=== PATIENT | male | born 1960 | race Caucasian/White ===

== ENCOUNTER 2018-08-18 11:44 | Emergency (ER) | payer BC ==
[2018-08-18 13:47] VITALS: BP 136/72
--- NOTE | 2018-08-18 14:08 | ED ---
Lower Extremity - HPI Summary HPI Summary: 58 yr old with left hip pain for two days, worse with bearing weight and movement. Worse when first gets up in the morning. No history of any acute trauma. No fever or chills. He does not feel sick. No redness or swelling over the hip. The patient has chronic back pain and [facility] He has no other complaints. - History of Current Complaint Chief Complaint: UCLowerExtremity Stated Complaint: LT HIP CONCERN Time Seen by Provider: 08/18/18 13:49 Pain Intensity: 6 - Allergies/Home Medications Allergies/Adverse Reactions: Allergies Allergy/AdvReac Type Severity Reaction Status Date / Time Penicillins Allergy Difficulty Verified 08/18/18 13:42 Breathing Home Medications: Home Medications Fluticasone-Salmeterol 500-50* [Advair Diskus 500-50*] 1 puff INH BID 08/18/18 [ History Confirmed 08/18/18] Ibuprofen TAB* [Advil TAB*] 800 mg PO Q8H PRN 08/18/18 [History Confirmed ] Lisinopril TAB* [Prinivil TAB*] 10 mg PO DAILY 08/18/18 [History Confirmed 08/18] Metoprolol Succinate XL TAB* [Toprol XL TAB*] 100 mg PO DAILY 08/18/18 [History Confirmed 08/18/18] Rosuvastatin (NF) [Crestor (NF)] 20 mg PO DAILY 08/18/18 [History Confirmed ] PMH/Surg Hx/FS Hx/Imm Hx Endocrine/Hematology History: Denies: Hx Diabetes Cardiovascular History: Reports: Hx Hypertension Denies: Hx Pacemaker/ICD Respiratory History: Reports: Hx Chronic Obstructive Pulmonary Disease (COPD) Sensory History: Denies: Hx Hearing Aid Psychiatric History: Denies: Hx Panic Disorder Infectious Disease History: No Infectious Disease History: Denies: Traveled Outside the [place] in Last 30 Days - Family History Known Family History: Positive: None - Social History Alcohol Use: <6 beers/daily Substance Use Type: Reports: None Smoking Status (MU): Heavy Every Day Tobacco Smoker Type: Cigarettes Amount Used/How Often: 1 - 1 1/2 PPD Length of Time of Smoking/Using Tobacco: Since Age 16 Review of Systems Constitutional: Negative Positive: Other - left hip pain All Other Systems Reviewed And Are Negative: Yes Physical Exam Vital Signs On Initial Exam: Initial Vitals Temp Pulse Resp BP Pulse Ox 98.4 F 60 24 136/72 98 08/18/18 13:40 08/18/18 13:40 08/18/18 13:40 08/18/18 13:40 08/18/18 13:40 Diagnostics - Vital Signs Vital Signs Temp Pulse Resp BP Pulse Ox 08/18/18 13:40 98.4 F 60 24 136/72 98 - Laboratory Lab Statement: Any lab studies that have been ordered have been reviewed, and results considered in the medical decision making process. - Radiology left hip pelvis Xray Interpretation: No Acute Changes Radiology Interpretation Completed By: Radiologist Lower Extremity Course/Dx - Course Course Of Treatment: 58 yr old male with rather significant left hip pain, but neg xray per rad. He is going to the ER for further eval. Could have occult fracture, infection. His is driving him. - Diagnoses Provider Diagnoses: Hip pain, left Discharge - Sign-Out/Discharge Documenting (check all that apply): Patient Departure All imaging exams completed and their final reports reviewed: Yes - Discharge Plan Condition: Good Disposition: HOME-RECOMMEND TO ED Patient Education Materials: Hip Pain (ED) Referrals: Tika Fernández PA [Primary Care Provider] - Additional Instructions: You should go to the ER now for further evaluation of your sever left hip pain. - Billing Disposition and Condition Condition: GOOD Disposition: Home-Recommend to ED
--- NOTE | 2018-08-18 14:10 | RAD ---
Indication: Left hip pain. 2 views of the left hip and an AP view the pelvis demonstrates no fracture or dislocation. Joint spaces well-preserved. Pelvic ring is intact. IMPRESSION: No fracture of the left hip or pelvis is noted.
== END 2018-08-18 14:34 | disposition home health service (06) ==
LOC: UCCORT 11:44
DX: M25.552 Pain in left hip (principal); M54.9 Dorsalgia, unspecified; I10 Essential (primary) hypertension; J44.9 Chronic obstructive pulmonary disease, unspecified; F17.210 Nicotine dependence, cigarettes, uncomplicated; Z88.0 Allergy status to penicillin
CPT/HCPCS: 99202; G0463

== ENCOUNTER 2019-01-29 07:40 | Inpatient (IN) | payer BC, MEDICARE ==
--- NOTE | 2019-01-16 19:47 | HP ---
HISTORY AND PHYSICAL: DATE OF ADMISSION/SURGERY: 01/29/19 DATE OF OFFICE VISIT: 01/16/19 SURGEON: Earlene Almazan MD.* (DICTATED BY SRIKANTH ZAMBRANO) PROCEDURE: Left total hip arthroplasty. CHIEF COMPLAINT: Left hip pain. HISTORY OF PRESENT ILLNESS: Mr. Bertrand is a 58-year-old gentleman with complaints of left hip pain. He has failed conservative treatment and elected to proceed with a left total hip arthroplasty. PAST MEDICAL HISTORY: Hypertension, COPD, high cholesterol, diabetes, seizure disorder, and stroke. PAST SURGICAL HISTORY: Colonoscopy. CURRENT MEDICATIONS: 1. ProAir HFA 2 puffs every 4 hours as needed. 2. Metoprolol 100 mg a day. 3. Lisinopril 10 mg a day. 4. Rosuvastatin calcium 20 mg a day. 5. Aspirin 81 mg daily. 6. Advair Diskus. 7. Lyrica 150 mg once a day. 8. Metformin 500 mg once a day. ALLERGIES: To PENICILLIN and MORPHINE. MORPHINE causes hives. FAMILY HISTORY: Diabetes, coronary artery disease, stroke, RA, and DVT. SOCIAL HISTORY: He is a 58-year-old gentleman who lives with his . He smokes a pack a day and drinks approximately 6 beers a day. He denies use of illicit drugs. REVIEW OF SYSTEMS: A complete 14-point review of systems was reviewed with the patient. Positive for history of stroke, seizures, COPD, and shortness of breath. He denies history of DVT, hepatitis, HIV, or anesthesia problems. PHYSICAL EXAMINATION GENERAL: He is well developed, well nourished, in no acute distress. VITAL SIGNS: He stands 67 inches tall, weighs 222 pounds. His blood pressure is 136/80, his heart rate is 64. HEENT: Normocephalic, atraumatic. NECK: Supple. No palpable lymph nodes. PULMONARY: The lungs are clear to auscultation bilaterally. CARDIO: Regular rate and rhythm. Strong S1, S2. ABDOMEN: Soft, nontender, nondistended. NEUROLOGICAL: He is alert and oriented x3. MUSCULOSKELETAL: Left lower extremity: The skin is intact. There are no open wounds or abrasions. He has 0 degrees of internal rotation, 30 degrees of external rotation, 95 degrees of flexion which reproduces groin pain. He has a 2+ dorsalis pedis pulse. He is able to dorsiflex and plantarflex and has intact sensation. ASSESSMENT AND PLAN: Mr. Bertrand is a 58-year-old gentleman with complaints of left hip pain. He has failed conservative treatment and elected to proceed with a left total hip arthroplasty. The surgery is scheduled for 01/29/[address] Almazan discussed the risks and benefits of the surgery at today' s visit and all of his questions were answered. He will follow up with Dr. Almazan 2 weeks after the surgery. SRIKANTH ZAMBRANO [id number]/[facility] #: [id number] SURY
[~2019-01-29 07:40] MED LIST: Acetaminophen TAB* 325 MG PO ONE; Buffered Lidocaine 1% SYRIN* 1 ML/SYRINGE INTRADERM ONE; Dexamethasone TAB* 4 MG PO ONE; DiMENhydriNATE IV* 50 MG/ML VIAL IV PUSH PRN; Famotidine IV* 10 MG/ML 2 ML (20 mg) IV ONE; Gabapentin CAP(*) 300 MG PO ONE; HYDROmorphone INJ1* 1 MG/ML SYRINGE IV PRN; Lactated Ringers 1000 ML Bag* 1,000 ML IV SCH; Naloxone* 0.4 MG/ML 1 ML VIAL IV PRN; Ondansetron TAB* 4 MG PO ONE; PROCHLORPERAZINE INJ 5 MG/ML 2 ML VIAL IV PRN; Scopolamine 1.5 mg* PATCH TRANSDERM PRN; celeCOXIB CAP* 200 MG PO ONE; fentaNYL* 50 MCG/ML 2 ML VIAL (100 MCG VIAL) IV PRN; oxyCODONE/Acetamin 5/325 MG* TAB PO PRN
--- OUTSIDE RECORDS SUMMARY | 2019-01-29 07:44 | XMS REPORT | Continuity of Care Document ---
:1960 External Reference #:[id number] Author Name Veronica Perry Care Team Providers Name Role Phone Oniel Fernández RPA Primary Care Physician Unavailable Payers Date Identification Numbers Payment Provider Subscriber Policy Number: [id number] [facility] Mariam Malone PayID: [id number] [address] [place] [address] Advance Directives Description No Information Available Problems Date Description Provider Status Onset: 11/14/2018 Localized, primary osteoarthritis of the Earleneduc Almazan M.D. Active pelvic region and thigh Family History Date Family Member(s) Observation Comments General Heart Disease General Coronary Artery Disease (CAD) General Hypertension General Diabetes General Asthma General Seasonal Allergies General Osteoporosis General Arthritis General Pancreatic Cancer Father Diabetes Father Heart Disease Father Hypertension Father due to Accidental () Mother Heart Disease Mother Pancreatic Cancer Mother Hypertension Mother due to Pancreatic Cancer () Social History Type Date Description Comments Sex Unknown Marital Status Lives With Spouse Occupation Not Currently Working ETOH Use Consumes 1 six pack of beer per day Tobacco Use Start: Unknown Patient is a current smoker, smokes every day Recreational Drug Use Denies Drug Use Tobacco Use Start: Unknown Heavy tobacco smoker (more than 10 cigarettes/day) Smoking Status Reviewed: 01/16/19 Heavy tobacco smoker (more than 10 cigarettes/day) Exercise Type/Frequency Does not exercise Allergies, Adverse Reactions, Alerts Date Description Reaction Status Severity Comments 2015 Penicillin Active 10/08/2018 Morphine Active Medications Medication Date Status Form Strength Qnty SIG Indications Ordering Provider Proair HFA Active Aerosol 108(90Bas 2 puffs Unknown /0000 e) by mouth mcg/Act every 4 hours as needed Metoprolol Succinate Active Tablets 100mg 1 by Unknown ER /0000 ER 24HR mouth every day Lisinopril Active Tablets 10mg 1 by Unknown /0000 mouth every day Rosuvastatin Calcium Active Tablets 20mg 1 by Unknown /0000 mouth every day Aspirin 81 Low Dose Active Chewtabs 81mg 1 by Unknown /0000 mouth every day Advair Diskus Active Aerosol 500-50mcg inhale Unknown /0000 /Dose one dose by mouth twice daily Lyrica Active Capsules 150mg take one Unknown /0000 tablet by mouth twice daily for pain. Metformin HCL ER Active Tablets 500mg Take One Unknown /0000 ER 24HR Tablet By Mouth Every Day Methylprednisolone 03/07 Hx Tablets 4mg 1pack take as 844.8 Cuauhtemoc Polk) /2014 directed Gómez - M.DSabino 09/28 Topiramate 12/24 Hx Caps 25mg 120ca 3-4 tabs Latisha Sabino Sprinkle ps by mouth Kimberley, - every day M.DSabino 10/02 directed Hydrocodone Hx Tablets 5-300mg 1 tab by Unknown Bitartrate/Acetamino /0000 mouth phen - every 4-6 12/ hours needed for pain Medications Administered in Office Medication Date Status Form Strength Qnty SIG Indications Ordering Provider Depomedrol Administered Injection Earlene 40MG 019 Jovanna Alamzan Immunizations Description No Information Available Vital Signs Date Vital Result Comment 01/16/2019 1:39pm Height 67 inches 5'7" Weight 222.00 lb Heart Rate 64 /min BP Systolic Sitting 136 mmHg BP Diastolic Sitting 80 mmHg Respiratory Rate 16 /min Pain Level 4 BMI (Body Mass Index) 34.8 kg/m2 12/26/2018 9:05am Height 67 inches 5'7" Weight 212.00 lb BP Systolic 140 mmHg BP Diastolic 72 mmHg Respiratory Rate 16 /min Pain Level 6 BMI (Body Mass Index) 33.2 kg/m2 11/21/2018 11:01am Height 67 inches 5'7" Weight 220.00 lb Heart Rate 80 /min BP Systolic 160 mmHg BP Diastolic 86 mmHg BMI (Body Mass Index) 34.5 kg/m2 11/14/2018 3:12pm Height 67 inches 5'7" Weight 230.50 lb Heart Rate 84 /min BP Systolic 138 mmHg BP Diastolic 88 mmHg Respiratory Rate 19 /min Pain Level 6 BMI (Body Mass Index) 36.1 kg/m2 10/08/2018 2:58pm Height 67 inches 5'7" Weight 233.25 lb Heart Rate 67 /min BP Systolic Sitting 147 mmHg L BP Diastolic Sitting 78 mmHg L Respiratory Rate 24 /min Pain Level 9 O2 % BldC Oximetry 96 % BMI (Body Mass Index) 36.5 kg/m2 2015 12:01pm Height 67 inches 5'7" Weight 208.00 lb Pain Level 6 BMI (Body Mass Index) 32.6 kg/m2 02/08/2015 11:35am Weight 208.00 lb Body Temperature 97.9 F Pain Level 3 Results Test Date Facility Test Result H/L Range Note CBC Auto Diff 01/16/2019 [facility] White Blood 8.2 10^3/uL N 3.5-10.[address] [place] [address] [phone] Red Blood Count 4.74 10^6/uL N 4.18-5.48 Hemoglobin 14.2 g/dL N 14.0-18.0 Hematocrit 42 % N 36-46 Mean Corpuscular Volume 89 fL N 80-94 Mean Corpuscular Hemoglobin 30 pg N 27-31 Mean Corpuscular HGB Conc 34 g/dL N 31-36 Red Cell Distribution Width 14 % N 10.5-15 Platelet Count 214 10^3/uL N 150-450 Mean Platelet Volume 9.2 fL N 7.4-10.4 Abs Neutrophils 4.7 10^3/uL N 1.5-7.7 Abs Lymphocytes 2.4 10^3/uL N 1.0-4.8 Abs Monocytes 0.7 10^3/uL N 0-0.8 Abs Eosinophils 0.4 10^3/uL N 0-0.6 Abs Basophils 0 10^3/uL N 0-0.2 Abs Nucleated RBC 0 10^3/uL Granulocyte % 57.0 % Lymphocyte % 29.5 % Monocyte % 8.8 % Eosinophil % 4.4 % Basophil % 0.3 % Nucleated Red Blood Cells % 0.1 Urinalysis Profile 01/16/2019 [facility] Urine Color Yellow [address] [place] [address] [phone] Urine Appearance Clear Urine Specific [place] 1.012 N 1.010-1.030 Urine pH 6.0 N 5-9 Urine Urobilinogen Negative Negative Urine Ketones Negative Negative Urine Protein Negative Negative Urine Leukocytes Negative Negative Urine Blood Negative Negative Urine Nitrite Negative Negative Urine Bilirubin Negative Negative Urine Glucose Negative Negative Inr/Protime 01/16/2019 [facility] Inr 0.98 N 0.77-1.[address] [place] [address] [phone] Laboratory test 01/16/2019 [facility] Partial 33.3 seconds N 26.0-36.[address] [place] [address] PTT [phone] Comp Metabolic 01/16/2019 [facility] Sodium 138 mmol/L N 135- [address] [place] [address] [phone] Potassium 4.4 mmol/L N 3.5-5.0 Chloride 101 mmol/L N 101-111 Co2 Carbon Dioxide 30 mmol/L N 22-32 Anion Gap 7 mmol/L N 2-11 Glucose 169 mg/dL High 70-100 Blood Urea Nitrogen 13 mg/dL N 6-24 Creatinine 0.91 mg/dL N 0.67-1.17 BUN/Creatinine Ratio 14.3 N 8-20 Calcium 9.3 mg/dL N 8.6-10.3 Total Protein 7.2 g/dL N 6.4-8.9 Albumin 4.5 g/dL N 3.2-5.2 Globulin 2.7 g/dL N 2-4 Albumin/Globulin Ratio 1.7 N 1-3 Total Bilirubin 0.30 mg/dL N 0.2-1.0 Alkaline Phosphatase 75 U/L N 34-104 Alt 52 U/L N 7-52 Ast 50 U/L High 13-39 Egfr Non- 85.6 >60 Egfr 103.5 >60 1 Type & Screen 01/16/2019 [facility] Patient Blood Type A Positive [address] [place] [address] [phone] Antibody Screen NEGATIVE Urine Culture And 01/16/2019 [facility] Urine Culture SEE RESULT [address] [place] [address] [phone] Xray 11/14/2018 Per Diem Registered Nurse In House Inj/Aspir <pending> Major JT Or Bursa W/ US Body Fluid Cell 03/26/2013 [facility] Body Fluid Synovial Fluid Count [address] [place] [address] [phone] Body Fluid Appearance Cloudy Body Fluid Color Rachana Body Fluid Volume 4 mL Body Fluid WBC 217 Body Fluid RBC 5860 Body Fluid Polys 4 Body Fluid Lymph 62 Body Fluid [place] 24 Body Fluid Other Cells 10 Body Fluid Total Cells Counted 100 Fluid Reviewed By MD (SEE NOTE) 3 Laboratory test 03/26/2013 [facility] Fluid Crystals None Seen [address] [place], [place] [id number] [phone] Body Fluid C&S 03/26/2013 [facility] Body Fluid Cult (SEE [address] Gram Stain NOTE) [place] [address] [phone] Laboratory test 03/24/2013 [facility] Erythrocyte Sed 24 mm/Hr High 0-[address] [place] [address] [phone] CBC Auto Diff 03/24/2013 [facility] White Blood Count 7.6 4.8 -[address] 10^3/uL 0.8 [place] [address] [phone] Red Blood Count 4.94 10^6/uL 4.0-5.4 Hemoglobin 15.2 g/dL 14.0-18.0 Hematocrit 45 % 42-52 Mean Corpuscular Volume 92 fL 80-94 Mean Corpuscular Hemoglobin 31 pg 27-31 Mean Corpuscular HGB Conc 34 g/dL 31-36 Red Cell Distribution Width 13 % 10.5-15 Platelet Count 228 10^3/uL 150-450 Mean Platelet Volume 9 um3 7.4-10.4 Abs Neutrophils 4.2 10^3/uL 1.5-7.7 Abs Lymphocytes 2.2 10^3/uL 1.0-4.8 Abs Monocytes 0.8 10^3/uL 0-0.8 Abs Eosinophils 0.2 10^3/uL 0-0.6 Abs Basophils 0.1 10^3/uL 0-0.2 Abs Nucleated RBC 0 10^3/uL Granulocyte % 55.8 % 38-83 Lymphocyte % 29.3 % 25-47 Monocyte % 11.1 % High 1-9 Eosinophil % 2.1 % 0-6 Basophil % 1.7 % 0-2 Nucleated Red Blood Cells % 0.1 Laboratory test 03/24/2013 [facility] C Reactive 0.8 mg/dL High Less than finding [address] Protein 0.5 [place] [address] [phone] 1 Because ethnic data is not always readily available, this report includes an eGFR for both -Americans and non- Americans. The National Kidney Disease Education Program (NKDEP) does not endorse the use of the MDRD equation for patients that are not between the ages of 18 and 70, are , have extremes of body size, muscle mass, or nutritional status, or are non- or non-. According to the National Kidney Foundation, irrespective of diagnosis, the stage of the disease is based on the level of kidney function: Stage Description GFR(mL/min/1.73 m(2)) 1 Kidney damage with normal or decreased GFR 90 2 Kidney damage with mild decrease in GFR 60-89 3 Moderate decrease in GFR 30-59 4 Severe decrease in GFR 15-29 5 Kidney failure <15 (or dialysis) 2 SEE RESULT BELOW Name: JOAQUIN RIBERA : [address]: Earlene Almazan MD Acct: [id number] Unit: [id number] AGE: 58 Location: [facility] Re01/16/19 SEX: M Status: REG REF SPEC: [id number] GHADA: 01/16/[address] [facility] [address]: Earlene Almazan MD REQ: [id number] RECD: 01/16/19 STATUS: TANISHA WEN DR: Tika Fernández PA _ SOURCE: URINE SPDESC: ORDERED: Urine Culture QUERIES: Urine Source: Clean Catch Procedure Result Reported Site Urine Culture Final 01/17/19- 1602 ML No Growth (<1,000 CFU/mL) * ML - Main Lab . END OF REPORT DEPARTMENT OF PATHOLOGY, [address] [place] [address] Luis A Carter M.D. Director [facility] # [id number] 3 REVIEWED BY LUIS A CARTER MD Slide and differential reviewed. No bacteria, blasts or other malignant cells seen. 4 Synovial (Joint) Fluid 5 RUN DATE: 03/30/13 [facility] LAB LIVE PAGE 1 RUN TIME: [address] [place] [address] Specimen Inquiry Name: JOAQUIN RIBERA : [address]: Cuauhtemoc Magaña MD Acct: [id number] Unit: [id number] AGE: 53 Location: [facility] Re03/26/13 SEX: M Status: REG REF SPEC: [id number] GHADA: 03/26/[address]: Cuauhtemoc Magaña MD REQ: [id number] RECD: 03/26/13 STATUS: COMP _ SOURCE: JOINT FLUI SPDESC:KNEE RIGHT ORDERED: NIKOLAI Hunter/SHELBY Procedure Result Verified Site Body Fluid Gram Stain Final 03/26/13- 1554 ML 4+ Polys No Organisms Seen Preparation By Direct Smear Body Fluid Culture Final 03/30/13- 1006 ML No Growth Day 4 END OF REPORT * ML=Testing performed at Main Lab DEPARTMENT OF PATHOLOGY, [address] [place] [address] Luis A Carter M.D. Director [facility] Permit #[id number] Procedures Date Code Description Status 11/14/2018 Inj/Aspir Major JT Or Bursa W/ US Completed 03/26/2013 Inject/Drain Joint/Bursa Major W/O US Completed 03/02/2013 Inject/Drain Joint/Bursa Major W/O US Completed Encounters Type Date Location Provider Dx Diagnosis Office Visit 12/26/2018 Orthopedic Earlene Almazan, M16.12 Unilateral primary 9:00a Services Of Juan Nugent osteoarthritis, left hip M25.552 Pain in left hip Office Visit 11/21/2018 Orthopedic Earlene M16.12 Unilateral primary 10:30a Services Of Jovanna Almazan osteoarthritis, left C.M.A. hip Office Visit 11/14/2018 Orthopedic Earlene M25.552 Pain in left hip 3:00p Services Of Jovanna Almazan C.M.ASabino M16.12 Unilateral primary osteoarthritis, left hip Office 10/08/2018 Neurosurgery Vassilios S32.110A Nondisplaced Zone Visit 3:00p Services Of Real Denny MD I fracture of AT Penelope sacrum, init for clos fx M54.16 Radiculopathy, lumbar region Office Visit 2015 11:45a Fannie Magaña, Marcial4.8 Sprains & Strains Services Of M.D. Knee & Leg Other C.M.A. Spec Sites Office Visit 02/08/2015 10:45a Fannie Magaña, 719.46 Pain Joint Lower Services Of M.D. Leg C.M.A. Office Visit 12/23/2013 11:45a Nicolas/Parminder Good MSabino 345.10 Epilepsy Neurologic Serv Stackman, Convulsive W/O Of Per Diem Registered Nurse M.D. Intractable 437.9 Cerebrovascular Disease Or Lesion Unspec Office Visit 04/24/2013 10:30a Orthopedic Cuauhtemoc Magaña, 844.8 Sprains & Services Of C.M.A. M.D. Strains Knee & Leg Other Spec Sites Office Visit 03/26/2013 2:00p Fannie Magaña 719.46 Pain Joint Services Of [facility]. M.D. Lower Leg 719.06 Effusion Joint Lower Leg Office Visit 03/24/2013 2:45p Orthopedic Services Joaquin Varela 719.46 Pain Joint Of C.[facility]. M.D. Lower Leg Office Visit 03/02/2013 2:15p Orthopedic Services Joaquin Varela 719.46 Pain Joint Of C.[facility]. M.D. Lower Leg 719.06 Effusion Joint Lower Leg Plan of Treatment Future Appointment(s):02/09/2019 2:30 pm - Earlene Almazan M.D. at [facility]01/29/2019 10:30 am - Raul Larios PA-C at [facility]01/29/2019 10:30 am - ANDREW Ordonez at [facility]01/29/2019 10:30 am - Earlene Almazan M.D. at [facility]01/16/2019 - Earlene Almazan M.D.M16.12 Unilateral primary osteoarthritis, left hipFollow up:Follow up: 2 weeks after [id number] Pain in left hip
--- OUTSIDE RECORDS SUMMARY | 2019-01-29 07:44 | XMS REPORT | Continuity of Care Document ---
:1960 External Reference #:[id number] Author Name Edith Faust Care Team Providers Name Role Phone Oniel Fernández RPA Primary Care Physician Unavailable Payers Date Identification Numbers Payment Provider Subscriber Policy Number: [id number] [facility] Mariam Malone PayID: [id number] [address] [place] [address] Advance Directives Description No Information Available Problems [...] Depomedrol Administered Injection Earlene 40MG 019 Jovanna Almazan Immunizations Description No Information Available Vital Signs [...] H/L Range Note CBC Auto Diff 01/16/2019 [facility] White Blood 8.2 10^3/uL N 3.5-10.[address] [place] [address] [phone] Red Blood Count 4.74 10^6/uL N 4.18-5.48 [...] Blood Cells % 0.1 Urinalysis Profile 01/16/2019 [facility] Urine Color Yellow [address] [place] [address] [phone] Urine Appearance Clear Urine Specific [place] 1.012 N 1.010-1.030 Urine pH 6.0 N 5-9 Urine Urobilinogen Negative Negative Urine Ketones Negative Negative Urine Protein Negative Negative Urine Leukocytes Negative Negative Urine Blood Negative Negative Urine Nitrite Negative Negative Urine Bilirubin Negative Negative Urine Glucose Negative Negative Inr/Protime 01/16/2019 [facility] Inr 0.98 N 0.77-1.[address] [place] [address] [phone] Laboratory test 01/16/2019 [facility] Partial 33.3 seconds N 26.0-36.[address] [place] [address] PTT [phone] Comp Metabolic 01/16/2019 [facility] Sodium 138 mmol/L N 135- [address] [place] [address] [phone] Potassium 4.4 mmol/L N 3.5-5.0 Chloride 101 [...] 103.5 >60 1 Type & Screen 01/16/2019 [facility] Patient Blood Type A Positive [address] [place] [address] [phone] Antibody Screen NEGATIVE Urine Culture And 01/16/2019 [facility] Urine Culture SEE RESULT [address] [place] [address] [phone] Xray 11/14/[address] In House Inj/Aspir <pending> Major JT Or Bursa W/ US Body Fluid Cell 03/26/2013 [facility] Body Fluid Synovial Fluid Count [address] [place] [address] [phone] Body Fluid Appearance Cloudy Body Fluid Color Rachana Body Fluid Volume 4 mL Body Fluid WBC 217 Body Fluid RBC 5860 Body Fluid Polys 4 Body Fluid Lymph 62 Body Fluid Kimble 24 Body Fluid Other Cells 10 Body Fluid Total Cells Counted 100 Fluid Reviewed By MD (SEE NOTE) 3 Laboratory test 03/26/2013 [facility] Fluid Crystals None Seen [address] [place], [place] [address] [phone] Body Fluid C&S 03/26/2013 [facility] Body Fluid Cult (SEE [address] Gram Stain NOTE) [place] [address] [phone] Laboratory test 03/24/2013 [facility] Erythrocyte Sed 24 mm/Hr High 0-[address] [place] [address] [phone] CBC Auto Diff 03/24/2013 [facility] White Blood Count 7.6 4.8 -[address] 10^3/uL 0.8 [place] [address] [phone] Red Blood Count 4.94 10^6/uL 4.0-5.4 Hemoglobin [...] Blood Cells % 0.1 Laboratory test 03/24/2013 [facility] C Reactive 0.8 mg/dL High Less than finding [address] Protein 0.5 [place] [address] [phone] 1 Because ethnic data is not always [...] [address]: Earlene Almazan MD Acct: [id number] Unit: [id number] AGE: 58 Location: [facility] Re01/16/19 SEX: M Status: REG REF SPEC: [id number] GHADA: 01/16/[address] [facility] [address]: Earlene Almazan MD REQ: [id number] RECD: 01/16/19 STATUS: TANISHA WEN DR: Tika Fernández PA _ SOURCE: URINE SPDESC: ORDERED: Urine Culture QUERIES: Urine Source: Clean Catch Procedure Result Reported Site Urine Culture Final 01/17/19- 1602 ML No Growth (<1,000 CFU/mL) * ML - Main Lab . END OF REPORT DEPARTMENT OF PATHOLOGY, [address] [place] [address] Luis A Carter M.D. Director [facility] # [id number] 3 REVIEWED BY LUIS A CARTER MD Slide and differential reviewed. No bacteria, blasts or other malignant cells seen. 4 Synovial (Joint) Fluid 5 RUN DATE: 03/30/13 [facility] LAB LIVE PAGE 1 RUN TIME: [address] [place] [address] Specimen Inquiry Name: JOAQUIN RIBERA : [address]: Cuauhtemoc Magaña MD Acct: [id number] Unit: [id number] AGE: 53 Location: [facility] Re03/26/13 SEX: M Status: REG REF SPEC: [id number] GHADA: 03/26/[address]: Cuauhtemoc Magaña MD REQ: [id number] RECD: 03/26/13 STATUS: COMP _ SOURCE: JOINT FLUI SPDESC:KNEE RIGHT ORDERED: NIKOLAI Hunter/SHELBY Procedure Result Verified Site Body Fluid Gram Stain Final 03/26/13- 1554 ML 4+ Polys No Organisms Seen Preparation By Direct Smear Body Fluid Culture Final 03/30/13- 1006 ML No Growth Day 4 END OF REPORT * ML=Testing performed at Main Lab DEPARTMENT OF PATHOLOGY, [address] [place] [address] Luis A Carter M.D. Director [facility] Permit #[id number] Procedures Date Code Description Status 11/14/2018 Inj/Aspir [...] Real Denny MD I fracture of AT [place] sacrum, init for clos fx M54.16 Radiculopathy, lumbar region Office Visit 2015 11:45a Fannie Magaña, Marcial4.8 Sprains & Strains Services Of M.D. Knee & Leg Other C.M.A. Spec Sites Office Visit 02/08/2015 10:45a Fannie Magaña, 719.46 Pain Joint Lower Services Of M.D. Leg C.M.A. Office Visit 12/23/2013 11:45a Nicolas/Parminder Good MSabino 345.10 Epilepsy Neurologic Serv Stackman, Convulsive W/O Of [address] M.D. Intractable 437.9 Cerebrovascular Disease Or Lesion [...] left hipFollow up:Follow up: 2 weeks after [id number] Pain in left hip
--- OUTSIDE RECORDS SUMMARY | 2019-01-29 07:44 | XMS REPORT | Continuity of Care Document ---
:1960 External Reference #:[id number] Author Name SRIKANTH Wolff Address [address] , [place] [address] Care Team Providers Name Role Phone Oniel Fernández RPA Primary Care Physician Unavailable Payers Date Identification Numbers Payment Provider Subscriber Policy Number: [id number] [facility] Mariam Malone PayID: [id number] [address] [place] [address] Advance Directives Description No Information Available Problems Date Description Provider Status Onset: 11/14/2018 Localized, primary osteoarthritis of the Earlene Almazan M.D. Active pelvic region and thigh [...] Form Strength Qnty SIG Indications Ordering Provider Pro HFA Active Aerosol 108(90Bas 2 puffs Unknown [...] Tablets 4mg 1pack take as 844.8 Cuauhtemoc (Nirav) directed Gómez, - M.D. 09/28 Topiramate 12/24 Hx Caps 25mg 120ca 3-4 tabs Latisha Ho Sprinkle ps by mouth Kimberley, - every day M.D. 10/02 directed Hydrocodone Hx Tablets 5-300mg 1 tab by Unknown Bitartrate/Acetamino /0000 mouth phen - every 4-6 09/30 hours needed for pain Medications Administered in [...] H/L Range Note CBC Auto Diff 01/16/2019 [facility] White Blood 8.2 10^3/uL N 3.5-10.[address] [place] [address] [phone] Red Blood Count 4.74 10^6/uL N 4.18-5.48 [...] Blood Cells % 0.1 Urinalysis Profile 01/16/2019 [facility] Urine Color Yellow [address] [place] [address] [phone] Urine Appearance Clear Urine Specific [place] 1.012 N 1.010-1.030 Urine pH 6.0 N 5-9 Urine Urobilinogen Negative Negative Urine Ketones Negative Negative Urine Protein Negative Negative Urine Leukocytes Negative Negative Urine Blood Negative Negative Urine Nitrite Negative Negative Urine Bilirubin Negative Negative Urine Glucose Negative Negative Inr/Protime 01/16/2019 [facility] Inr 0.98 N 0.77-1.[address] [place] [address] [phone] Laboratory test 01/16/2019 [facility] Partial 33.3 seconds N 26.0-36.[address] [place] [address] PTT [phone] Comp Metabolic 01/16/2019 [facility] Sodium 138 mmol/L N 135- [address] [place] [address] [phone] Potassium 4.4 mmol/L N 3.5-5.0 Chloride 101 [...] 103.5 >60 1 Type & Screen 01/16/2019 [facility] Patient Blood Type A Positive [address] [place] [address] [phone] Antibody Screen NEGATIVE Urine Culture And 01/16/2019 [facility] Urine Culture SEE RESULT [address] [place] [address] [phone] Xray 11/14/2018 [facility] In House Inj/Aspir <pending> Major JT Or Bursa W/ US Body Fluid Cell 03/26/2013 [facility] Body Fluid Synovial Fluid Count [address] Source [place], [place] [address] [phone] Body Fluid Appearance Cloudy Body Fluid Color Rachana Body Fluid Volume 4 mL Body Fluid WBC 217 Body Fluid RBC 5860 Body Fluid Polys 4 Body Fluid Lymph 62 Body Fluid [place] 24 Body Fluid Other Cells 10 Body Fluid Total Cells Counted 100 Fluid Reviewed By MD (SEE NOTE) 3 Laboratory test 03/26/2013 [facility] Fluid Crystals None Seen [address] [place] [address] [phone] Body Fluid C&S 03/26/2013 [facility] Body Fluid Cult (SEE [address] Gram Stain NOTE) [place], [place] [address] [phone] Laboratory test 03/24/2013 [facility] Erythrocyte Sed 24 mm/Hr High 0-[address] [place] [address] [phone] CBC Auto Diff 03/24/2013 [facility] White Blood Count 7.6 4.8 -[address] 10^3/uL 0.8 [place] [address] [phone] Red Blood Count 4.94 10^6/uL 4.0-5.4 Hemoglobin [...] Blood Cells % 0.1 Laboratory test 03/24/2013 [facility] C Reactive 0.8 mg/dL High Less than finding [address] Protein 0.5 [place] [address] [phone] 1 Because ethnic data is not always [...] [address]: Earlene Almazan MD Acct: [id number] Unit: [id number] AGE: 58 Location: [facility] Re01/16/19 SEX: M Status: REG REF SPEC: [id number] GHADA: 01/16/19 [facility] DR: Earlene Almazan MD REQ: [id number] RECD: 01/16/19 STATUS: TANISHA WEN DR: Tika Fernández PA _ SOURCE: URINE SPDESC: ORDERED: Urine Culture QUERIES: Urine Source: Clean Catch Procedure Result Reported Site Urine Culture Final 01/17/19- 1602 ML No Growth (<1,000 CFU/mL) * ML - Main Lab . END OF REPORT DEPARTMENT OF PATHOLOGY, [address] [place] [address] Luis A Carter M.D. Director [facility] # [id number] 3 REVIEWED BY LUIS A CARTER MD Slide and differential reviewed. No bacteria, blasts or other malignant cells seen. 4 Synovial (Joint) Fluid 5 RUN DATE: 03/30/13 [facility] LAB LIVE PAGE 1 RUN TIME: [address] [place] [address] Specimen Inquiry Name: JOAQUIN RIBERA : [address]: Cuauhtemoc Magaña MD Acct: [id number] Unit: [id number] AGE: 53 Location: [facility] Re03/26/13 SEX: M Status: REG REF SPEC: [id number] GHADA: 03/26/13-[address]: Cuauhtemoc Magaña MD REQ: [id number] RECD: 03/26/13 STATUS: COMP _ SOURCE: JOINT FLUI SPDESC:KNEE RIGHT ORDERED: NIKOLAI Hunter/SHELBY Procedure Result Verified Site Body Fluid Gram Stain Final 03/26/13- 1554 ML 4+ Polys No Organisms Seen Preparation By Direct Smear Body Fluid Culture Final 03/30/13- 1006 ML No Growth Day 4 END OF REPORT * ML=Testing performed at Main Lab DEPARTMENT OF PATHOLOGY, [address] [place] [address] Luis A Carter M.D. Director [facility] Permit #[id number] Procedures Date Code Description Status 11/14/2018 Inj/Aspir Major JT Or Bursa W/ US Completed 03/26/201396524 Inject/Drain Joint/Bursa Major W/O US Completed 03/02/2013 [...] Real Denny MD I fracture of AT [place] sacrum, init for clos fx M54.16 Radiculopathy, lumbar region Office Visit 2015 11:45a Orthopedic Cuauhtemoc Magaña, 844.8 Sprains & Strains Services Of M.D. Knee & Leg Other C.M.A. Spec Sites Office Visit 02/08/2015 10:45a Orthopedic Cuauhtemoc Magaña 719.46 Pain Joint Lower Services Of M.D. Leg C.M.A. Office Visit 12/23/2013 11:45a [place]/Parminder Ho 345.10 Epilepsy Neurologic Serv Stackman, Convulsive W/O Of Ammonia Box Tender M.D. Intractable 437.9 Cerebrovascular Disease Or Lesion [...] left hipFollow up:Follow up: 2 weeks after [id number] Pain in left hip
--- OUTSIDE RECORDS SUMMARY | 2019-01-29 07:44 | XMS REPORT | Continuity of Care Document ---
:1960 External Reference #:[id number] Author Name Vero Shanika Care Team Providers Name Role Phone Oniel Fernández RPA Primary Care Physician Unavailable Payers Date Identification Numbers Payment Provider Subscriber Policy Number: [id number] [facility] Mariam Malone PayID: [id number] [address] [place] [address] Advance Directives Description No Information Available Problems [...] Unknown /0000 mouth every day Rosuvastatin Calcium 00 Active Tablets 20mg 1 by Unknown /0000 [...] take as 844.8 Cuauhtemoc Polk) /2014 directed Wilder Magaña M.D. 09/28 Topiramate 12/24 Hx Caps 25mg [...] Date Facility Test Result H/L Range Note Xray 11/14/2018 [facility] In House Inj/Aspir <pending> Major JT Or Bursa W/ US Body Fluid C&S 03/26/2013 [facility] Body Fluid (SEE NOTE) [address] [place] [address] Stain [phone] Laboratory test 03/26/2013 [facility] Fluid Crystals None Seen [address] [place] [address] [phone] Body Fluid Cell 03/26/2013 [facility] Body Fluid Synovial Fluid Count [address] Source [place], [place] [address] [phone] Body Fluid Appearance Cloudy Body Fluid Color Rachana Body Fluid Volume 4 mL Body Fluid WBC 217 Body Fluid RBC 5860 Body Fluid Polys 4 Body Fluid Lymph 62 Body Fluid [place] 24 Body Fluid Other Cells 10 Body Fluid Total Cells Counted 100 Fluid Reviewed By MD (SEE NOTE) 3 Laboratory test 03/24/2013 [facility] C Reactive 0.8 mg/dL High Less than finding [address] Protein 0.5 [place], [place] [address] [phone] CBC Auto Diff 03/24/2013 [facility] White Blood 7.6 4.8-10.[address] Count 10^3/uL [place], [place] [address] [phone] Red Blood Count 4.94 10^6/uL 4.0-5.4 Hemoglobin [...] Blood Cells % 0.1 Laboratory test 03/24/2013 [facility] Erythrocyte Sed 24 mm/Hr High 0-[address] [place] [address] [phone] 1 RUN DATE: 03/30/13 [facility] LAB LIVE PAGE 1 RUN TIME: [address] [facility], [place] [address] Specimen Inquiry Name: JOAQUIN RIBERA : [address]: Cuauhtemoc Magaña MD Acct: [id number] Unit: [id number] AGE: 53 Location: [facility] Re03/26/13 SEX: M Status: REG REF SPEC: [id number] GHADA: 03/26/[address]: Cuauhtemoc Magaña MD REQ: [id number] RECD: 03/26/13 STATUS: COMP _ SOURCE: JOINT FLUI SPDESC:KNEE RIGHT ORDERED: BF Cult/GS Procedure Result Verified Site Body Fluid Gram Stain Final 03/26/13- 1554 ML 4+ Polys No Organisms Seen Preparation By Direct Smear Body Fluid Culture Final 03/30/13- 1006 ML No Growth Day 4 END OF REPORT * ML=Testing performed at Main Lab DEPARTMENT OF PATHOLOGY, [address] [place] [address] Luis A Carter M.D. Director [place] Permit #[id number] 2 Synovial (Joint) Fluid 3 REVIEWED BY LUIS A CARTER MD Slide and differential reviewed. No bacteria, blasts or other malignant cells seen. Procedures Date Code Description Status 11/14/2018 Inj/Aspir [...] left hip 3:00p Services Of Jovanna Almazan C.MAbdirizak M16.12 Unilateral primary osteoarthritis, left hip Office 10/08/2018 Neurosurgery Vassilios S32.110A Nondisplaced Zone Visit 3:00p Services Of Real Denny MD I fracture of AT [place] sacrum, init for clos fx M54.16 Radiculopathy, lumbar region Office Visit 2015 11:45a Fannie Magaña, 844.8 Sprains & Strains Services Of Jovanna Knee & Leg Other C.M.A. Spec Sites Office Visit 02/08/2015 10:45a Fannie Magaña 719.46 Pain Joint Lower Services Of Jovanna Leg C.M.A. Office Visit 12/23/2013 11:45a [place]/Ashley Latisha Ho 345.10 Epilepsy Neurologic Serv Stackman, Convulsive W/O Of eRal Nugent Intractable 437.9 Cerebrovascular Disease Or Lesion Unspec Office Visit 04/24/2013 10:30a Fannie Magaña 844.8 Sprains & Services Of Juan [place]ug[place] Strains Knee & Leg Other Spec Sites Office Visit 03/26/2013 2:00p Fannie Magaña 719.46 Pain Joint Services Of Juan Nugent Lower Leg 719.06 Effusion Joint Lower Leg Office Visit 03/24/2013 2:45p Orthopedic Services Joaquin Varela, 719.46 Pain Joint Of C.Mitchell.Marco A Nugent Lower Leg Office Visit 03/02/2013 2:15p Orthopedic Services Joaquin Varela, 719.46 Pain Joint Of C.M.Marco A Nugent Lower Leg 719.06 Effusion Joint Lower Leg Plan of Treatment Future Appointment(s):02/09/2019 2:30 pm - Earlene Almazan M.D. at [facility].01/29/2019 1:30 pm - Raul Larios PA-C at [facility].01/29/2019 1:30 pm - [facility] 1:30 pm - [facility]01/16/2019 - Earlene Almazan M.D.M16.12 Unilateral primary osteoarthritis, left hipFollow up:Follow up: 2 weeks after [id number] Pain in left hip
[2019-01-29] MEDS ORDERED: fentaNYL* 50 MCG/ML 2 ML VIAL (100 MCG VIAL) ONE (07:55)
[2019-01-29] MEDS ORDERED: KETAMINE HCL* 50 MG/ML 10 ML VIAL ONE (07:55)
[2019-01-29] MEDS ORDERED: Midazolam* 1 MG/ML 5 ML VIAL (5 MG) ONE (07:56)
[2019-01-29] MEDS ORDERED: celeCOXIB CAP* 100 MG ONE (08:10)
[2019-01-29] MEDS ORDERED: Acetaminophen TAB* 325 MG ONE (08:11)
[2019-01-29] MEDS ORDERED: Levalbuterol 0.63MG/3ML NEB* UNIT OF USE INH ONE ×2 (08:11→09:00)
[2019-01-29] MEDS ORDERED: Dexamethasone TAB* 4 MG ONE (08:11)
[2019-01-29] MEDS ORDERED: Famotidine IV* 10 MG/ML 2 ML (20 mg) ONE (08:11)
[2019-01-29] MEDS ORDERED: Clindamycin 900 MG/D5W BAG(*) 900 MG/50 ML BAG IVPB ONE (08:11)
[2019-01-29] MEDS ORDERED: Ondansetron ODT TAB* 4 MG ONE (08:11)
[2019-01-29] MEDS ORDERED: Atracurium* 10 MG/ML 10 ML VIAL ONE (08:48)
[2019-01-29] MEDS ORDERED: HYDROmorphone INJ1* 1 MG/ML SYRINGE ONE ×3 (10:23→13:09)
[2019-01-29] MEDS ORDERED: Metoprolol Tartrate IV* 1 MG/ML 5 ML VIAL ONE (11:22)
[2019-01-29] MEDS ORDERED: Glycopyrrolate IV* 0.2 MG/ML 1 ML VIAL ONE (11:22)
[2019-01-29] MEDS ORDERED: Propofol* 10 MG/ML 20 ML BTL ONE (11:22)
[2019-01-29] MEDS ORDERED: Neostigmine Methylsulfate* 1 MG/ML 10 ML VIAL (1 mg/ml) ONE (11:22)
[2019-01-29] MEDS ORDERED: Lidocaine 2% PF * 5 ML VIAL ONE (11:22)
[2019-01-29] MEDS ORDERED: Phenylephrine 10 MG/ML VIAL* 1 ML VIAL ONE (11:22)
[2019-01-29] MEDS ORDERED: hydrALAZINE IV* 20 MG/ML VIAL ONE (12:13)
[2019-01-29] MEDS ORDERED: Bupivacaine 0.5%* 50 ML VIAL ONE (12:13)
[2019-01-29] MEDS ORDERED: Acetaminophen TAB* 325 MG PO PRN ×2 (12:33→17:27)
[2019-01-29] MEDS ORDERED: Cyclobenzaprine TAB* 10 MG PO PRN (12:33)
[2019-01-29] MEDS ORDERED: Ondansetron INJ* 2 MG/ML VIAL IV PRN (12:33)
[2019-01-29] MEDS ORDERED: diPHENhydraMINE IV* 50 MG/ML 1 ml VIAL (BENADRYL) IV PRN (12:33)
[2019-01-29] MEDS ORDERED: Magnesium Hydroxide LIQ* 30 ML UDC PO PRN (12:33)
[2019-01-29] MEDS ORDERED: Morphine 4 MG/ML VIAL (1 ml) 4 MG/ML VIAL IV PRN (12:33)
[2019-01-29] MEDS ORDERED: oxyCODONE/Acetamin 5/325 MG* TAB PO PRN (12:33)
[2019-01-29] MEDS ORDERED: ceFAZolin 1 GM ADVAN(*) 1 GM in NS 0.9% 50 ML* 50 ML IVPB SCH (13:00)
[2019-01-29] MEDS ORDERED: diPHENhydraMINE IV* 50 MG/ML 1 ml VIAL (BENADRYL) ONE (13:10)
[2019-01-29] MEDS ORDERED: Albuterol/Ipratropium NEB.SOL* Albuterol 2.5 MG/Ipratropium 0.5 MG 3 ML INH PRN (13:35)
--- NOTE | 2019-01-29 13:48 | CONSULT ---
Subjective Date of Service: 01/29/19 Interval History: Mr. Bertrand is a 58 year old male with history of OA of the left hip, HTN, COPD, tobacco use that [place] [facility] [place]. He was seen in the PACU, very drowsy but arousable. States his only complain is cough. Surgical pain is well controlled. Family is at bedside. We are being consulted for medical co-management. Family History: Unchanged from Admission Social History: Findings - active every day smoker, no ETOH, no drug use Past Medical History: Findings - HTN, COPD, OA Review of Systems - Measurements Intake and Output: Intake and Output Last 24 Hours 01/27/19 01/28/19 01/29/19 01/30/19 06:59 06:59 06:59 06:59 Intake Total 1850 Output Total 500 Balance 1350 Weight 226 lb 9.6 oz Intake: IV Fluids 1850 LR 1800 NS 50ML, Cefazolin 2G 50 Output: Sullivan 500 - Review of Systems Constitutional Symptoms: Negative: Weight Gain, Weight Loss, Weakness, Fatigue, Fever, Night Sweats, Unexplained Falls, Other Dermatology: Negative: Normal, Rash, Skin Lesions, Cancer, Skin Lumps, Other HEENT: Negative: Normal, Change in Hearing, Vertigo, Dental Problems, Tinnitus, Sinus Problem, Other Eyes: Negative: Normal, Change in Vision, Double Vision, Eye Pain, Glaucoma, Cataract, Contacts or Glasses, Other Thyroid: Negative: Normal, Goiter, Thyroid Nodule, Cold Intolerance, Heat Intolerance , Sweatiness, Tremor, Frequent Defecation, Constipation, Palpitations, Primary Hypothyroidism, Primary Hyperthyroidism, Weight Loss, Weight Gain, Change in Skin/Hair, Change in Menstruation, Radiation Exposure, Other Pulmonary: Positive: Cough Negative: Normal, Sputum, Hemoptysis, Wheezing, Respiratory Distress, Shortness of Breath, COPD, Asthma, Exercise Intolerance, Home Oxygen, Other Cardiology: Negative: Normal, Chest Pain, Shortness of Breath, Palpitations, Swelling of Ankles, Peripheral Vascular Dis, Edema, Faintness, Syncope, Claudication, Proximal NocturnalDyspnea, Orthopnoea, Other Gastroenterology: Negative: Normal, Abdominal Pain, Nausea, Vomiting, Anorexia, Indigestion, Difficulty Swallowing, Heartburn, Constipation, Diarrhea, Blood in Stools, Change in Bowel Habits, Haematemesis, Melena, Other Genital - Urinary: Negative: Normal, Dysuria, Hematuria, Polyuria, Nocturia, Other Musculoskeletal: Positive: Joint Pain, Joint Stiffness, Arthritis Negative: Osteoporosis, Low Back Pain, Sciatica, Joint Deformities, Kyphoscoliosis, Other Endocrinology: Negative: Normal, Thyroid Problems, Adrenal Problems, Gonadal Problems, Family Hx Endocrine Disorders, Obesity, Diabetes Mellitus, Hyperglycemia, Hx Hypoglycemia, Diabetic Foot Ulcers, Calluses, Hirsutism, Menstral Abnormalities , Polydipsia, Polyuria, Gonadal Problems, Gynecomastia, Pituitary disease, Other Hematologic/Lymphatic: Negative: Anemia, Easy Brusing, Hx Leukemia, Hx Lymphoma, Use of Anticoagulant, Use of Antiplatelet Drugs, Other Neurology: Negative: Normal, Headache, Migraines, Change in Vision, Diplopia, Dizziness , Change in Balancing, Change in Coordination, Change in Memory, Change in Speech, Change in Sphincter Function, Change in Walking, Numbness\Paresthesiae, Unexplained Weakness, Hx of Stroke\TIA, Hx of Seizures, Other Psychiatry: Negative: Normal, Depression, Anxiety, Depressed Mood, Adhedonia, Sexual Dysfunction, Weight Change, Guilt Feelings, Tearfulness, Unusual Fatigue, Unusual Anxiety, Suicidal Ideation, Hypomania, Eating Disorders, Other Allergic/Immunologic: Negative: Hx Anaphylaxis, Hx Angioedema, Hx Environmental, Hx Seasonal, Athsma, Hx HIV, Immunocompromise, Swollen Glands LymphNodes, Other Objective Active Medications: Acetaminophen (Tylenol Tab*) 650 mg PO ONCE ONE Stop: 01/29/19 06:01 Last Admin: 01/29/19 08:27 Dose: 650 mg Acetaminophen (Tylenol Tab*) 650 mg PO Q8H PRN PRN Reason: PAIN OR TEMPERATURE Albuterol/Ipratropium (Duoneb (Albuterol 2.5 Mg/Ipratropium 0.5 Mg)) 1 neb INH Q4H PRN PRN Reason: SOB/WHEEZING Apixaban (Eliquis*) 2.5 mg PO BID [facility] Celecoxib (Celebrex Cap*) 200 mg PO ONCE ONE Stop: 01/29/19 06:01 Last Admin: 01/29/19 08:28 Dose: 200 mg Cyclobenzaprine HCl (Flexeril Tab*) 5 mg PO TID PRN PRN Reason: SPASMS Dexamethasone (Decadron Tab*) 8 mg PO ONCE ONE Stop: 01/29/19 06:01 Last Admin: 01/29/19 08:26 Dose: 8 mg Dimenhydrinate (Dramamine Iv*) 12.5 mg IV PUSH ONCE PRN PRN Reason: NAUSEA/VOMITING Diphenhydramine HCl (Benadryl Iv*) 25 mg IV Q6H PRN PRN Reason: itching Last Admin: 01/29/19 13:11 Dose: 25 mg Docusate Sodium (Colace Cap*) 100 mg PO BID [facility] Famotidine (Pepcid Iv*) 20 mg IV ONCE ONE Stop: 01/29/19 06:01 Last Admin: 01/29/19 08:28 Dose: 20 mg Fentanyl Citrate (Fentanyl*) 25 mcg IV Q3M PRN PRN Reason: PAIN - MODERATE Gabapentin (Neurontin Cap(*)) 600 mg PO ONCE ONE Stop: 01/29/19 06:01 Last Admin: 01/29/19 08:48 Dose: Not Given Hydromorphone HCl (Dilaudid Inj1s*) 0.5 mg IV Q10M PRN PRN Reason: PAIN - SEVERE Last Admin: 01/29/19 13:13 Dose: 0.5 mg Lactated Ringer's (Lactated Ringers 1000 Ml Bag*) 1,000 mls @ 125 mls/hr IV PER RATE [facility] Last Admin: 01/29/19 08:29 Dose: 125 mls/hr Cefazolin Sodium 1 gm/ Sodium (Chloride) 50 mls @ 200 mls/hr IVPB Q8H [facility] Stop: 01/30/19 05:14 Lactated Ringer's (Lactated Ringers 1000 Ml Bag*) 1,000 mls @ 100 mls/hr IV PER RATE [facility] Lactulose (Lactulose*) 30 ml PO Q6H PRN PRN Reason: constipation Levalbuterol HCl (Xopenex 0.63mg/3ml Neb*) 0.63 mg INH UC ONCE ONE Stop: 01/29/19 09:01 Last Admin: 01/29/19 08:29 Dose: 0.63 mg Lidocaine/Sodium Bicarbonate (Buffered Lidocaine 1% Syrin*) 0.2 ml INTRADERM ONCE ONE Stop: 01/28/19 10:48 Magnesium Hydroxide (Milk Of Magnesia Liq*) 30 ml PO BID [facility] Magnesium Hydroxide (Milk Of Magnesia Liq*) 30 ml PO Q6H PRN PRN Reason: constipation Morphine Sulfate (Morphine 4 Mg/Ml Vial (1 Ml)) 2 mg IV Q2H PRN PRN Reason: PAIN Multivitamins (Theragran Tab*) 1 tab PO DAILY [facility] Naloxone HCl (Narcan*) 0.08 mg IV Q2M PRN PRN Reason: severe induced resp depression Ondansetron HCl (Zofran Tab*) 4 mg PO ONCE ONE Stop: 01/28/19 10:48 Last Admin: 01/29/19 08:27 Dose: 4 mg Ondansetron HCl (Zofran Inj*) 4 mg IV Q6H PRN PRN Reason: nausea Oxycodone HCl (Roxycodone Tab*) 10 mg PO Q4H PRN PRN Reason: PAIN - SEVERE Oxycodone/Acetaminophen (Percocet 5/325 Tab*) 1 tab PO ONCE PRN PRN Reason: PAIN - MODERATE Oxycodone/Acetaminophen (Percocet 5/325 Tab*) 1 tab PO Q4H PRN PRN Reason: PAIN Oxycodone/Acetaminophen (Percocet 5/325 Tab*) 2 tab PO Q4H PRN PRN Reason: PAIN Pharmacy Profile Note (Scopolamine Patch Remove*) 1 note PATCH OFF Q72H ONE Stop: 02/01/19 06:01 Prochlorperazine Edisylate (Compazine Inj*) 5 mg IV ONCE PRN PRN Reason: NAUSEA/VOMITING Fluticasone/Salmeterol (Advair Diskus 500-50*) 1 puff INH BID [place] Scopolamine (Transderm-Scop 1.5 Mg Patch*) 1 patch TRANSDERM Q72H PRN PRN Reason: Nausea/Vomiting Vital Signs - 8 hr 01/29/19 01/29/19 01/29/19 08:20 12:30 12:40 Temperature 98.1 F 97.7 F Pulse Rate 78 82 Respiratory 16 16 27 Rate Blood Pressure 171/94 171/81 (mmHg) O2 Sat by Pulse 94 93 Oximetry 01/29/19 01/29/19 01/29/19 12:46 12:51 12:56 Temperature Pulse Rate 81 79 81 Respiratory 17 28 16 Rate Blood Pressure 175/86 159/91 175/85 (mmHg) O2 Sat by Pulse 97 96 96 Oximetry 01/29/19 01/29/19 13:01 13:13 Temperature Pulse Rate 79 Respiratory 23 16 Rate Blood Pressure 154/82 (mmHg) O2 Sat by Pulse 97 Oximetry Oxygen Devices in Use Now: OxyMask Appearance: drowsy, post-anesthesia state, arousable, NAD Eyes: No Scleral Icterus, PERRLA Ears/Nose/Mouth/Throat: - - edentulous Neck: NL Appearance and Movements; NL JVP Respiratory: Symmetrical Chest Expansion and Respiratory Effort, - - bilateral exp wheeze, 94% on oxymask Cardiovascular: NL Sounds; No Murmurs; No JVD, RRR, No Edema Extremities: No Edema, No Clubbing, Cyanosis Skin: No Rash or Ulcers, - - dressing left hip CDI Neurological: Alert and Oriented x 3, NL Sensation Assessment/Plan - Billing Assessment: 1. OA, s/p LTHA - POC as per orthopedics - Pain control - Bowel regimen - OOB with PT/OT 2. HTN - Continue home metoprolol and lisinopril - Follow daily labs and monitor BP 3. COPD, Active Smoker - Start advair now and continue BID - Dounebs Q4h PRN wheezing - Supplemental O2 PRN - IS 10x/hr while awake VTE PPX: - Eliquis Diet: - Heart healthy as tolerated Code Status: - Full code Admission Status and Rationale: - Inpatient, dispo per ortho Thank you for the courtesy of this consult, will continue to follow the patient along with you.
[2019-01-29] MEDS: Lactated Ringers 1000 ML Bag* 1,000 ML IV SCH (14:44)
[2019-01-29] MEDS: Mometasone/Formoter 200/5 MDI INH SCH ×2 (15:16→20:05)
[2019-01-29] MEDS: oxyCODONE/Acetamin 5/325 MG* TAB PO PRN (15:51)
[2019-01-29] MEDS: Clindamycin 600 MG/D5W BAG(*) 600 MG/50 ML BAG IV SCH (16:32)
--- NOTE | 2019-01-29 16:33 | PN ---
Progress Note - Progress Note Date of Service: 01/29/19 Note: Pt seen at bedside POD 0 sp LTH, pain is well controlled, has already walked to the bathroom with PT and intends to DC to home 4/5. Denies CP, SOB, dizziness, nausea. Denies hx DVT or PE, on eliquis for DVT prophylaxis. Dressing CDI, thigh soft, DP2+, sensation intact to light touch distally, DF/PF intact.
--- NOTE | 2019-01-29 17:41 | OP ---
Operative Report - Blank - Operative Report Date of Operation: 01/29/19 Note: JOAQUIN RIBERA 1960 Date Of Surgery: 01/29/19 Earlene Almazan MD Asset Protection Greeter: Raul DUKE did help throughout the procedure with preparation of the hip, wound retraction, manipulation of the hip, and wound closure. Anesthesiologist: Radha Singh MD Anesthesia Type: General Preoperative Diagnosis: Left severe degenerative osteoarthritis of the hip Postoperative Diagnosis: As above Procedure Performed: Left Total Hip Arthroplasty Complications: None Specimen: Femoral head and acetabular reamings sent to pathology. Hardware used: This is uncemented Jennifer total hip arthroplasty hardware for the femur a size 3 accolade II with 127 degree neck femoral component, for the acetabulum a size 52E trident II tritanium cluster hole shell with one 20 mm screw, for the insert a size 36 E trident x3 10 degree insert, and for the femoral head a size 36 + 0 biolox ceramic V40 femoral head. Brief history/Indication: JOAQUIN RIBERA was known in clinic and had a history of severe left hip pain. He failed conservative treatment with anti- inflammatories, pain pills, intra-articular injections and physical therapy. He elected to undergo left total hip arthroplasty due to continued pain and decreased quality of life. Radiographs showed severe end stage osteoarthritis of the hip with bone on bone contact. Informed consent was obtained from the patient. He understood the risks of surgery included but were not limited to: bleeding, infection, damage to nearby structures, intraoperative fracture, nerve palsy, failure of the hardware, early loosening, stiffness or loss of motion, dislocation, leg length discrepancy, anesthesia complications, stroke, heart attack, blood clot and . He wished to proceed. Intra-Operative findings: Intraoperatively the patient was noted to have severe loss of cartilage of the acetabulum and femoral head. Description of the Procedure: JOAQUIN RIBERA was identified in the preanesthesia unit. His left hip was marked as the correct operative side. Informed consent was signed and placed in the chart. The patient was taken to the operating room and placed under anesthesia without complication. A adams catheter was placed. The patient was placed on the peg board with all bony prominences well padded. The left lower extremity was prepped and draped in the usual sterile fashion. Preoperative time -out was made to correctly identify the patient, side and site. Appropriate intraoperative antibiotics were given within one hour of incision. A standard posterior incision was made and carried sharply down to the lateral fascia. A new 10 blade was used to make an incision in the fascia in line with the skin incision. A charnley retractor was placed. The piriformis and conjoined tendons were identified and elevated off the posterolateral femur using electrocautery. These were tagged with number 5 Ethibond. Next electrocautery was used to make a posterolateral capsular flap and this was tagged with number 5 Ethibonds. The hip was carefully dislocated. Lesser trochanter to the center of the femoral head was measured at 50 mm. The oscillating saw was used to make the femoral neck cut. The femoral head was carefully removed. The femur was retracted anteriorly and the acetabular retractors were placed. Long-handled knife was used to sharply remove any remaining labrum from the acetabular rim. The acetabulum was sequentially reamed up to a size 51. A bleeding subchondral bone bed was obtained. A trial liner was placed and had excellent fit and stability. A trident II tritaniu cluster hole shell size 52 E was placed and had excellent stability with appropriate anteversion and abduction angle. A size 36 E 10 degree trident x3 liner was impacted into the acetabular shell. The liner was checked for stability and was stable. Next attention was turned to preparation of the femoral canal. A canal finder was used to enter the proximal femur. The femoral canal was sequentially broached up to a size 3 femoral broach trial. A trial neck and 36 +0 trial femoral head was chosen. Lesser trochanter to center of the femoral head measurement was satisfactory. The hip was reduced and taken through a range of motion. The hip was stable in all positions with good soft tissue tension and appropriate leg lengths. The hip was dislocated and all trials were removed. The final implant chosen was an accolade II size 3 with 127 degree neck. This stem was impacted into the femoral canal without difficulty. The stem was stable with appropriate anteversion. The femoral head chosen was a 36 + 0 ceramic biolox V40. The head was impacted onto the femoral neck without difficulty. The final lesser trochanter to center of the femoral head measurement was satisfactory. The hip was reduced and taken through a range of motion. The hip was stable in all positions with good soft tissue tension and appropriate leg lengths. The hip was copiously irrigated with sterile saline. The previously tagged capsule and tendons were repaired to the posterolateral femur through two trochanteric drill holes. The lateral fascia layer was closed using number 1 vicryls. The rest of the incision was closed in a layered fashion using 0 and 2-0 vicryls. The skin was closed using 3-0 monocryl suture and Dermabond. Sterile adaptic, 4x4s and paper tape was used to cover the incision. The patients anesthesia was reversed without difficulty. He was taken to the PACU in stable condition. Intended weight-bearing will be as tolerated with posterior hip precautions.
[2019-01-29] MEDS ORDERED: LORazepam TAB(*) 1 MG PO SCH (18:00)
[2019-01-29] MEDS: Magnesium Hydroxide LIQ* 30 ML UDC PO SCH (21:04)
[2019-01-29] MEDS: oxyCODONE TAB* 5 MG TAB PO PRN (21:04)
[2019-01-29] MEDS: Docusate CAP* 100 MG PO SCH (21:04)
[2019-01-30] MEDS: Clindamycin 600 MG/D5W BAG(*) 600 MG/50 ML BAG IV SCH ×2 (00:27→09:25)
[2019-01-30] MEDS: Lactated Ringers 1000 ML Bag* 1,000 ML IV SCH (00:31)
[2019-01-30] MEDS: oxyCODONE/Acetamin 5/325 MG* TAB PO PRN ×3 (00:31→12:26)
[2019-01-30] MEDS: oxyCODONE TAB* 5 MG TAB PO PRN ×2 (05:50→10:25)
[2019-01-30 06:20] LABS: Hematocrit 36 % (36-46); Hemoglobin 12.1 g/dL (14.0-18.0); Mean Platelet Volume 9.3 fL (7.4-10.4); Platelet Count 181 10^3/uL (150-450)
[2019-01-30 06:33] LABS: Calcium 9.1 mg/dL (8.6-10.3); Potassium 4.2 mmol/L (3.5-5.0)
[2019-01-30 06:39] LABS: BUN/Creatinine Ratio 13.8 (8-20); EGFR African American 109.1 (>60); EGFR Non-African American 90.1 (>60)
[2019-01-30] MEDS ORDERED: Dextrose 50% Syringe 50 ML* 25 GM/50 ML SYRINGE IV PUSH PRN (07:08)
[2019-01-30] MEDS: Magnesium Hydroxide LIQ* 30 ML UDC PO SCH (08:16)
[2019-01-30] MEDS: Docusate CAP* 100 MG PO SCH (08:17)
[2019-01-30] MEDS: Insulin LISPRO* 1 UNITS UNIT SUBCUT SCH ×2 (08:18→12:07)
[2019-01-30] MEDS: Mometasone/Formoter 200/5 MDI INH SCH (08:28)
[2019-01-30] MEDS ORDERED: Vitamin THERAPEUTIC TAB PO SCH (09:00)
[2019-01-30] MEDS ORDERED: Folic Acid TAB* 1 MG PO SCH (09:00)
[2019-01-30] MEDS ORDERED: Thiamine TAB* 100 MG TAB PO SCH (09:00)
[2019-01-30] MEDS ORDERED: Metoprolol Succinate XL TAB* 100 MG PO SCH (09:00)
[2019-01-30] MEDS ORDERED: Apixaban* 2.5 MG TAB PO SCH (09:00)
--- NOTE | 2019-01-30 11:11 | PN ---
Subjective Date of Service: 01/30/19 Interval History: Patient is feeling relatively well today. Patient rates pain at 3/10. Patient denies F/C, N/V, abdominal pain, diarrhea, CP, SOB, dysuria. Patient is passing gas and urinating. Patient is working well with PT/OT. Patient is hoping to go home later today. Patient states he drinks a 6 pack most nights but has never had withdrawal symptoms and does not feel anxious or tremulous today. Family History: Unchanged from Admission Social History: Findings - active every day smoker, no ETOH, no drug use Past Medical History: Findings - HTN, COPD, OA, "borderline" diabetes Objective Active Medications: Acetaminophen (Tylenol Tab*) 650 mg PO Q8H PRN PRN Reason: PAIN OR TEMPERATURE Albuterol/Ipratropium (Duoneb (Albuterol 2.5 Mg/Ipratropium 0.5 Mg)) 1 neb INH Q4H PRN PRN Reason: SOB/WHEEZING Last Admin: 01/29/19 15:16 Dose: 1 neb Apixaban (Eliquis*) 2.5 mg PO BID [facility] Last Admin: 01/30/19 08:17 Dose: 2.5 mg Cyclobenzaprine HCl (Flexeril Tab*) 5 mg PO TID PRN PRN Reason: SPASMS Dextrose (D50w Syringe 50 Ml*) 12.5 gm IV PUSH .FOR FS < 60 - SS PRN PRN Reason: FS < 60 Diphenhydramine HCl (Benadryl Iv*) 25 mg IV Q6H PRN PRN Reason: itching Last Admin: 01/29/19 13:11 Dose: 25 mg Docusate Sodium (Colace Cap*) 100 mg PO BID [facility] Last Admin: 01/30/19 08:17 Dose: 100 mg Folic Acid (Folvite Tab*) 1 mg PO DAILY [facility] Last Admin: 01/30/19 08:17 Dose: 1 mg Lactated Ringer's (Lactated Ringers 1000 Ml Bag*) 1,000 mls @ 100 mls/hr IV PER RATE [facility] Last Admin: 01/30/19 00:31 Dose: 100 mls/hr Insulin Human Lispro (Humalog*) 0 units SUBCUT AC [facility]; Protocol Last Admin: 01/30/19 08:18 Dose: 1 unit Lactulose (Lactulose*) 30 ml PO Q6H PRN PRN Reason: constipation Magnesium Hydroxide (Milk Of Magnesia Liq*) 30 ml PO BID [facility] Last Admin: 01/30/19 08:16 Dose: 30 ml Magnesium Hydroxide (Milk Of Magnesia Liq*) 30 ml PO Q6H PRN PRN Reason: constipation Metoprolol Succinate (Toprol Xl Tab*) 100 mg PO QAM [facility] Last Admin: 01/30/19 08:17 Dose: 100 mg Mometasone Furoate/Formoterol Fumar (Dulera 200/5 Mdi*) 2 puff INH BID [facility] Last Admin: 01/30/19 08:28 Dose: 2 puff Multivitamins (Theragran Tab*) 1 tab PO DAILY [facility] Last Admin: 01/30/19 08:17 Dose: 1 tab Ondansetron HCl (Zofran Inj*) 4 mg IV Q6H PRN PRN Reason: nausea Oxycodone HCl (Roxycodone Tab*) 10 mg PO Q4H PRN PRN Reason: PAIN - SEVERE Last Admin: 01/30/19 10:25 Dose: 10 mg Oxycodone/Acetaminophen (Percocet 5/325 Tab*) 1 tab PO Q4H PRN PRN Reason: PAIN Oxycodone/Acetaminophen (Percocet 5/325 Tab*) 2 tab PO Q4H PRN PRN Reason: PAIN Last Admin: 01/30/19 08:17 Dose: 2 tab Thiamine HCl (Vitamin B-1 Tab*) 100 mg PO DAILY [facility] Last Admin: 01/30/19 08:17 Dose: 100 mg Vital Signs - 8 hr 01/30/19 01/30/19 01/30/19 03:59 04:05 04:30 Temperature 97.8 F Pulse Rate 86 Respiratory 16 17 18 Rate Blood Pressure 152/77 (mmHg) O2 Sat by Pulse 97 Oximetry 01/30/19 01/30/19 01/30/19 05:50 07:58 08:05 Temperature 97.6 F Pulse Rate 78 Respiratory 17 18 16 Rate Blood Pressure 130/69 (mmHg) O2 Sat by Pulse 95 Oximetry 01/30/19 01/30/19 01/30/19 08:17 10:25 10:26 Temperature Pulse Rate Respiratory 16 16 16 Rate Blood Pressure (mmHg) O2 Sat by Pulse Oximetry Oxygen Devices in Use Now: None Appearance: Patient is a 58yo male who appears stated age and is sitting in the bed in NAD. Eyes: No Scleral Icterus, PERRLA Ears/Nose/Mouth/Throat: NL Teeth, Lips, Gums, Clear Oropharnyx, Mucous Membranes Moist Neck: NL Appearance and Movements; NL JVP, Trachea Midline Respiratory: Symmetrical Chest Expansion and Respiratory Effort Cardiovascular: NL Sounds; No Murmurs; No JVD, No Edema Abdominal: NL Sounds; No Tenderness; No Distention, No Hepatosplenomegaly Lymphatic: No Cervical Adenopathy Extremities: No Edema, No Clubbing, Cyanosis Skin: No Nodules or Sclerosis, - - Left hip covered with bulky dressing. Neurological: Alert and Oriented x 3, NL Sensation, NL Muscle Strength and Tone , - - CN II-XII intact. Result Diagrams: 01/30/19 05:50 01/30/19 05:50 Assess/Plan/Problems-Billing Assessment: Patient is a 58yo male with a PMH for COPD, HTN, DM II who is S/P a LTHA and is doing well. 1. OA, s/p LTHA - POC as per orthopedics - Pain control - Bowel regimen - OOB with PT/OT 2. HTN - Continue home metoprolol and lisinopril - Follow daily labs and monitor BP 3. COPD, Active Smoker - Start advair now and continue BID - Dounebs Q4h PRN wheezing - Supplemental O2 PRN - IS 10x/hr while awake 4. Diet Controlled Diabetes Mellitus - Does not take meds at home - BG in PACU was 192 - Will order accucheck AC only, if sugars are elevated, will consider lispro SS while hospitalized VTE PPX: - Eliquis Diet: - Heart healthy as tolerated Code Status: - Full code Admission Status and Rationale: - Inpatient, dispo per ortho Thank you for the courtesy of this consult, will continue to follow the patient along with you. - Patient Problems (1) Post-operative state Current Visit: Yes Status: Acute Code(s): Z98.890 - OTHER SPECIFIED POSTPROCEDURAL STATES SNOMED Code(s): 29095642 Comment: - POC as per orthopedics - Pain control - Bowel regimen - OOB with PT/OT - Trend H/H (2) COPD (chronic obstructive pulmonary disease) Current Visit: Yes Status: Acute Code(s): J44.9 - CHRONIC OBSTRUCTIVE PULMONARY DISEASE, UNSPECIFIED SNOMED Code(s): 39790470 Comment: - Not in exacerbation - Continue home inhalers and PRN Nebs. - Encourage smoking cessation. (3) HTN (hypertension) Current Visit: Yes Status: Acute Code(s): I10 - ESSENTIAL (PRIMARY) HYPERTENSION SNOMED Code(s): 87486576 Comment: - Normotensive, continue home lisinopril and metoprolol (4) DM II (diabetes mellitus, type II), controlled Current Visit: Yes Status: Acute Code(s): E11.9 - TYPE 2 DIABETES MELLITUS WITHOUT COMPLICATIONS SNOMED Code(s): 63985311 Comment: - Well controlled. Goal below 180 with SSI (5) Alcohol abuse Current Visit: Yes Status: Acute Code(s): F10.10 - ALCOHOL ABUSE, UNCOMPLICATED SNOMED Code(s): 08616330 Comment: - No signs of withdrawal, discontinue WAM (6) DVT prophylaxis Current Visit: Yes Status: Acute Code(s): MBU8409 - SNOMED Code(s): 332132867 Comment: - Eliquis per Orthopedics. (7) Full code status Current Visit: Yes Status: Acute Code(s): Z78.9 - OTHER SPECIFIED HEALTH STATUS SNOMED Code(s): 484240578 Status and Disposition: Disposition per Orthopedics, Hopefully home today.
--- NOTE | 2019-01-30 11:23 | PN ---
Progress Note - Progress Note Date of Service: 01/30/19 SOAP: Subjective: []Patient seen OOB in chair. He is doig well, pain well managed. Denies SOB, CP, palpitations. He hopes to go home this afternoon after PT session. Objective: [] Vital Signs Temp 97.6 F 01/30/19 07:58 Pulse 78 01/30/19 07:58 Resp 16 01/30/19 10:26 BP 130/69 01/30/19 07:58 Pulse Ox 95 01/30/19 07:58 Intake & Output 01/29/19 01/30/19 01/30/19 18:59 06:59 18:59 Intake Total 1850 1910 1928 Output Total 500 4400 Balance 1350 -2490 1928 Weight 226 lb 9.6 oz Intake: IV Fluids 1850 1766 LR 1800 1766 NS 50ML, Cefazolin 2G 50 IVPB 50 162 ABX - CLINDAMYCIN 50 162 Oral 1860 Output: Urine 0 Sullivan 500 4400 Laboratory Results - last 24 hr 01/29/19 01/29/19 01/30/19 12:58 17:08 05:50 Hgb 12.1 L Hct 36 Plt Count 181 MPV 9.3 Sodium Potassium Chloride Carbon Dioxide Anion Gap BUN Creatinine Est GFR ( Amer) Est GFR (Non-Af Amer) BUN/Creatinine Ratio Glucose POC Glucose (mg/dL) 192 H 165 H Calcium 01/30/19 05:50 Hgb Hct Plt Count MPV Sodium 136 Potassium 4.2 Chloride 97 L Carbon Dioxide 32 Anion Gap 7 BUN 12 Creatinine 0.87 Est GFR ( Amer) 109.1 Est GFR (Non-Af Amer) 90.1 BUN/Creatinine Ratio 13.8 Glucose 194 H POC Glucose (mg/dL) Calcium 9.1 Left hip dressings are dry and intact calf NT and soft + DF left ankle sensation and circulation are intact distally Assessment: []s/p left total hip arthroplasty POD #1 Plan: []PT/OT WBAT LLE Posterior hip precautions Eliquis for dvt prophylaxis Home later today after afternnon PT Follow up as scheduled with Dr. Almazan 10-14 days
[2019-01-30] MEDS ORDERED: Lisinopril TAB* 10 MG PO SCH (12:00)
[2019-01-30 12:25] VITALS: BP 130/74
--- NOTE | 2019-01-30 14:57 | DS ---
Orthopedic Discharge Summary - Discharge Summary Date of Admission:01/29/19 Date of Discharge: 01/30/19 Date of Surgery: 01/29/19 Attending Orthopedic Provider: Dr. Almazan Pre-operative Diagnosis: DJD left hip Operative Procedure: Left total hip arthroplasty Condition of Patient: stable History: JOAQUIN RIBERA is a 58 year old M with years of increasingly severe left hip pain. Patient has failed conservative management and has elected to undergo a left total hip replacement. Hospital Course: JOAQUIN was admitted to [facility] on 01/29/19. Patient underwent a left total hip arthroplasty without complication followed by a brief recovery in PACU and transfer to the Short Stay Surgical Unit in stable condition. Our hospitalist service, physical therapy and occupational therapy also participated in this patients care. Post-op day 1: patient was alert and in no acute distress. Dressing was clean, dry and intact. Operative extremity dorsiflexion and plantarflexion intact, sensation intact to light touch distally, DP2+. dressing was changed, incision was clean, dry and intact. Patient was deemed to be medically and orthopedically stable for discharge home. Physical therapy goals were met. Home Medications Medication Instructions Recorded Confirmed Type RX: Fluticasone-Salmeterol 500-50* 1 puff INH BID 08/18/18 01/29/19 History Advair Diskus 500-50* RX: Lisinopril TAB* [Prinivil TAB 10 mg PO QAM 08/18/18 01/29/19 History 10 MG*] RX: Metoprolol Succinate XL TAB* 100 mg PO QAM 08/18/18 01/29/19 History [Toprol XL TAB*] RX: Rosuvastatin (NF) [Crestor 20 mg PO QAM 08/18/18 01/29/19 History (NF)] RX: Albuterol inh POWDER (NF) 1 puff INH Q4H PRN 01/16/19 01/29/19 History [Proair Respiclick] RX: Aspirin [Adult Aspirin] 81 mg PO QAM 01/16/19 01/29/19 History RX: Pregabalin CAP(*) [Lyrica 150 mg PO QAM 01/16/19 01/29/19 History CAP(*)] metFORMIN* 01/29/19 History RX: Apixaban* [Eliquis*] 2.5 mg PO BID #60 tab 01/30/19 Rx RX: Docusate CAP* [Colace Cap*] 100 mg PO BID cap 01/30/19 Rx RX: oxyCODONE TAB* [Roxycodone TAB 10 mg PO Q4H PRN #42 tab MDD 6 01/30/19 Rx 5 mg*] Discharge home WBAT LLE Posterior hip precautions Oxycodone 5 mg 1-2 po q4, MDD 10 Eliquis 2.5 BID for DVT prophylaxis 1 month post op [facility] Follow up in 10-14 days as scheduled with Dr. Almazan
[2019-01-31] MEDS ORDERED: Aspirin EC TAB* 81 MG TAB.EC PO SCH (09:00)
[2019-02-01] MEDS ORDERED: Scopolamine PATCH Remove* 1 NOTE MISC PATCH OFF ONE (06:00)
== END 2019-01-30 14:25 | disposition home or self-care (01) | DRG 301 ==
LOC: AA 07:40 → SSU 14:42
PROVIDERS: ADMIT Orthopaedic Surgery Adult Reconstructive Orthopaedic Surgery; ATTEND Orthopaedic Surgery Adult Reconstructive Orthopaedic Surgery
PROC: 0SRB04A Replacement of Left Hip Joint with Ceramic on Polyethylene Synthetic Substitute, Uncemented, Open Approach (ICD-10-PCS; principal; 2019-01-29 10:00)
DX: M17.12 Unilateral primary osteoarthritis, left knee (principal); I10 Essential (primary) hypertension; E78.00 Pure hypercholesterolemia, unspecified; E11.9 Type 2 diabetes mellitus without complications; G40.909 Epilepsy, unspecified, not intractable, without status epilepticus; F17.210 Nicotine dependence, cigarettes, uncomplicated; E78.5 Hyperlipidemia, unspecified; J43.9 Emphysema, unspecified; G89.29 Other chronic pain; M54.5 Low back pain; K76.0 Fatty (change of) liver, not elsewhere classified; E66.9 Obesity, unspecified; F10.10 Alcohol abuse, uncomplicated; Y90.9 Presence of alcohol in blood, level not specified; M51.36 Other intervertebral disc degeneration, lumbar region; Z86.010 Personal history of colon polyps; Z82.5 Family history of asthma and other chronic lower respiratory diseases; Z80.42 Family history of malignant neoplasm of prostate; Z86.73 Personal history of transient ischemic attack (TIA), and cerebral infarction without residual deficits; Z88.0 Allergy status to penicillin; Z88.5 Allergy status to narcotic agent; Z79.82 Long term (current) use of aspirin; Z83.3 Family history of diabetes mellitus; Z82.49 Family history of ischemic heart disease and other diseases of the circulatory system; Z82.3 Family history of stroke; Z82.61 Family history of arthritis; Z83.49 Family history of other endocrine, nutritional and metabolic diseases; Z68.35 Body mass index [BMI] 35.0-35.9, adult
CPT/HCPCS: 36415; 72170; 80048; 85014; 85018; 85049; 94640; A9270-GY; G8978-GP-CL; G8979-GP-CI; G8987-GO-CJ; G8988-GO-CI; G8989-GO-CJ; J0360; J1170; J1200; J2250; J2704; J2710; J3010; J3490; J8540

== ENCOUNTER 2019-03-16 23:30 | Emergency (ER) | payer BC ==
--- OUTSIDE RECORDS SUMMARY | 2019-03-16 23:35 | XMS REPORT | Continuity of Care Document ---
:1960 External Reference #:[id number] Author Name Emily Dodd Care Team Providers Name Role Phone Oniel Fernández RPA Primary Care Physician Unavailable Payers Date Identification Numbers Payment Provider Subscriber Policy Number: [id number] [facility] Mariam Malone PayID: [id number] [address] [place] [address] Advance Directives Description No Information Available Problems Active Problems Provider Date Localized, primary osteoarthritis of the pelvic Earlene Almazan M.D. Onset: region and thigh Family History Date Family [...] (more than 10 cigarettes/day) Smoking Status Reviewed: 02/25/19 Heavy tobacco smoker (more than 10 cigarettes/day) Exercise Type/Frequency Does not exercise Allergies, Adverse Reactions, Alerts Active Allergies Reaction Severity Comments Date Penicillin 2015 Morphine 10/08/2018 Medications Active Medications SIG Qnty Indications Ordering Provider Date Lorazepam take one tab 60tabs M25.552 Earlene Almazan, 02/09/2019 2mg Tablets twice a day as M.D. needed Proair HFA 2 puffs by mouth Unknown 108(90Base) every 4 hours as mcg/Act Aerosol needed Metoprolol Succinate 1 by mouth every Unknown ER day 100mg Tablets ER 24HR Lisinopril 1 by mouth every Unknown 10mg Tablets day Rosuvastatin Calcium 1 by mouth every Unknown 20mg day Tablets Aspirin 81 Low Dose 1 by mouth every Unknown 81mg day Chewtabs Advair Diskus inhale one dose Unknown by mouth twice 500-50mcg/Dose Aerosol daily Lyrica take one tablet Unknown 150mg Capsules by mouth twice daily for pain. Metformin HCL ER Take One Tablet Unknown 500mg By Mouth Every Tablets ER 24HR Day History Medications Methylprednisolone (Nirav) take as 1pack 844.8 Cuauhtemoc Magaña 2015 - 4mg directed Jovanna 09/28/2018 Tablets Topiramate 3-4 tabs by debbie Ho 12/24/2013 - 25mg Caps Sprinkle mouth every day Jovanna Chu 10/02/2018 as directed Hydrocodone 1 tab by mouth Unknown - Bitartrate/Acetaminophen every 4-6 hours 09/30/2018 as needed for 5-300mg Tablets pain Medications Administered in Office Medication SIG Qnty Indications Ordering Provider Date Depomedrol 40MG Earlene Almazan M.D. 11/14/2018 Injection Immunizations Description No Information Available Vital Signs Date Vital Result Comment 02/25/2019 11:25am Height 67 inches 5'7" Heart Rate 64 /min BP Systolic 132 mmHg BP Diastolic 84 mmHg Respiratory Rate 18 /min Body Temperature 98.5 F Pain Level 0 02/09/2019 3:07pm Height 67 inches 5'7" Heart Rate 72 /min BP Systolic 128 mmHg BP Diastolic 72 mmHg Respiratory Rate 25 /min Body Temperature 97.5 F Pain Level 3 01/16/2019 1:39pm Height 67 inches 5'7" Weight [...] H/L Range Note CBC Auto Diff 01/16/2019 [facility] White Blood 8.2 10^3/uL N 3.5-10.[address] [place] [address] [phone] Red Blood Count 4.74 10^6/uL N 4.18-5.48 [...] Blood Cells % 0.1 Urinalysis Profile 01/16/2019 [facility] Urine Color Yellow [address] [place] [address] [phone] Urine Appearance Clear Urine Specific Deridder 1.012 N 1.010-1.030 Urine pH 6.0 N 5-9 Urine Urobilinogen Negative Negative Urine Ketones Negative Negative Urine Protein Negative Negative Urine Leukocytes Negative Negative Urine Blood Negative Negative Urine Nitrite Negative Negative Urine Bilirubin Negative Negative Urine Glucose Negative Negative Inr/Protime 01/16/2019 [facility] Inr 0.98 N 0.77-1.[address] [place] [address] [phone] Laboratory test 01/16/2019 [facility] Partial 33.3 seconds N 26.0-36.[address] [place] [address] PTT [phone] Comp Metabolic 01/16/2019 [facility] Sodium 138 mmol/L N 135- 145 Panel [address] [place] [address] [phone] Potassium 4.4 mmol/L N 3.5-5.0 Chloride 101 [...] 103.5 >60 1 Type & Screen 01/16/2019 [facility] Patient Blood Type A Positive [address] [place] [address] [phone] Antibody Screen NEGATIVE Urine Culture And 01/16/2019 [facility] Urine Culture SEE RESULT [address] [place] [address] [phone] Xray 11/14/2018 Occupational Therapy Director In House Inj/Aspir <pending> Major JT Or Bursa W/ US Body Fluid Cell 03/26/2013 [facility] Body Fluid Synovial Fluid Count [address] [place] [address] [phone] Body Fluid Appearance Cloudy Body Fluid Color Rachana Body Fluid Volume 4 mL Body Fluid WBC 217 Body Fluid RBC 5860 Body Fluid Polys 4 Body Fluid Lymph 62 Body Fluid [place] 24 Body Fluid Other Cells 10 Body Fluid Total Cells Counted 100 Fluid Reviewed By MD (SEE NOTE) 3 Laboratory test 03/26/2013 [facility] Fluid Crystals None Seen [address] [place] [address] [phone] Body Fluid C&S 03/26/2013 [facility] Body Fluid Cult (SEE [address] DRIVE Gram Stain NOTE) [place] [address] [phone] Laboratory test 03/24/2013 [facility] Erythrocyte Sed 24 mm/Hr High 0-[address] [place] [address] [phone] CBC Auto Diff 03/24/2013 [facility] White Blood Count 7.6 4.8 -[address] 10^3/uL 0.8 [place] [address] [phone] Red Blood Count 4.94 10^6/uL 4.0-5.4 Hemoglobin [...] Blood Cells % 0.1 Laboratory test 03/24/2013 [facility] C Reactive 0.8 mg/dL High Less than finding [address] Protein 0.5 [place] [id number] [phone] 1 Because ethnic data is not always [...] [address]: Earlene Almazan MD Acct: [id number] Unit: [id number] AGE: 58 Location: PAT Re01/16/19 SEX: M Status: REG REF SPEC: [id number] GHADA: 01/16/19-[address] [facility] [address]: Earlene Almazan MD REQ: [id number] RECD: 01/16/19 STATUS: TANISHA WEN DR: Tika Fernández PA _ SOURCE: URINE SPDESC: ORDERED: Urine Culture QUERIES: Urine Source: Clean Catch Procedure Result Reported Site Urine Culture Final 01/17/19- 1602 ML No Growth (<1,000 CFU/mL) * ML - Main Lab . END OF REPORT DEPARTMENT OF PATHOLOGY, [address] [place], [place] [address] Luis A Carter M.D. Director [facility] # [id number] 3 REVIEWED BY LUIS A CARTER MD Slide and differential reviewed. No bacteria, blasts or other malignant cells seen. 4 Synovial (Joint) Fluid 5 RUN DATE: 03/30/13 [facility] LAB LIVE PAGE 1 RUN TIME: [address] [facility] [employer] [place], [place] [address] Specimen Inquiry Name: JOAQUIN RIBERA : [address]: Cuauhtemoc Magaña MD Acct: [id number] Unit: [id number] AGE: 53 Location: [facility] Re03/26/13 SEX: M Status: REG REF SPEC: [id number] GHADA: 03/26/13-[address] [facility] [address]: Cuauhtemoc Magaña MD REQ: [id number] RECD: 03/26/135369 STATUS: COMP _ SOURCE: JOINT FLUI SPDESC:KNEE RIGHT ORDERED: BF Cult/GS Procedure Result Verified Site Body Fluid Gram Stain Final 03/26/13- 1554 ML 4+ Polys No Organisms Seen Preparation By Direct Smear Body Fluid Culture Final 03/30/13- 1006 ML No Growth Day 4 END OF REPORT * ML=Testing performed at Main Lab DEPARTMENT OF PATHOLOGY, [address] [place] [address] Luis A Carter M.D. Director [facility] Permit #[id number] Procedures Date Code Description Status 01/29/2019 THR Total Hip Replacement Completed 01/29/2019 THR Total Hip Replacement Completed 11/14/2018 Inj/Aspir Major JT Or Bursa W/ US Completed 03/26/2013 Inject/Drain Joint/Bursa Major W/O US Completed 03/02/2013 Inject/Drain Joint/Bursa Major W/O US Completed Encounters Type Date Location Provider Dx Diagnosis Office Visit 01/30/2019 [facility] Jassi Long, M19.90 Unspecified 11:07a Assoc,christos [place] osteoarthritis, Hospitalists unspecified site Z98.890 Other specified postprocedural states J44.9 Chronic obstructive pulmonary disease, unspecified I10 Essential (primary) hypertension E11.9 Type 2 diabetes mellitus without complications F10.10 Alcohol abuse, uncomplicated Office Visit 01/29/2019 [facility] Zohra M19.90 Unspecified 11:07a Assoc,christos [facility] osteoarthritis, Hospitalists ZULEMA Gonzalez unspecified site I10 Essential (primary) hypertension J44.9 Chronic obstructive pulmonary disease, unspecified F17.200 Nicotine dependence, unspecified, uncomplicated E11.9 Type 2 diabetes mellitus without complications Office Visit 12/26/2018 Orthopedic Earlene M16.12 Unilateral primary 9:00a Services Of [facility] Almazan osteoarthritis, left C.M.A. hip M25.552 Pain in left hip Office Visit 11/21/2018 Orthopedic Earlene M16.12 Unilateral primary 10:30a [facility] Almazan osteoarthritis, left C.M.A. hip Office Visit 11/14/2018 Orthopedic Earlene M25.552 Pain in left hip 3:00p [facility] Almazan C.M.A. M16.12 Unilateral primary osteoarthritis, left hip Office 10/08/2018 Neurosurgery Vassilios S32.110A Nondisplaced Zone Visit 3:00p Services Of Real Denny MD I fracture of AT [place] sacrum, init for clos fx M54.16 Radiculopathy, lumbar region Office Visit 2015 11:45a Orthopedic Cuauhtemoc Magaña 844.8 Sprains & Strains Services [facility] Knee & Leg Other C.M.A. Spec Sites Office Visit 02/08/2015 10:45a Orthopedic Cuauhtemoc Magaña 719.46 Pain Joint Lower [facility] Leg C.M.A. 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 437.9 Cerebrovascular Disease Or Lesion Unspec Office Visit 04/24/2013 10:30a Fannie Magaña 844.8 Sprains & Services Of [facility] [place] Strains Knee & Leg Other Spec Sites Office Visit 03/26/2013 2:00p Orthopedic Cuauhtemoc Magaña 719.46 Pain Joint [facility] [place]ug[place] Lower Leg 719.06 Effusion Joint Lower Leg Office Visit 03/24/2013 2:45p Orthopedic Services Elisa Coles9.46 Pain Joint [facility] [place] Lower Leg Office Visit 03/02/2013 2:15p Orthopedic Services Joaquin Varela, 719.46 Pain Joint [facility] [place]ug[place] Lower Leg 719.06 Effusion Joint Lower Leg Plan of Treatment Future Appointment(s):04/08/2019 10:45 am - Earlene Almazan M.D. at [facility]02/25/2019 - Earlene Almazan M.D.M25.552 Pain in left hipFollow up:Follow up: 6 bsrgwY25.12 Unilateral primary osteoarthritis, left hipZ47.1 Aftercare following joint replacement surgery
--- NOTE | 2019-03-17 00:03 | ED ---
Lower Extremity - HPI Summary HPI Summary: A 59 y/o M transferred from [facility] ED presents to ED with L-sided hip pain onset approx 1900. The pain is rated 6 out of 10. He was seated on the floor and went to straighten his leg, when his hip popped out. Patient had a hip replacement with galilea Hanna, on 01/29/2019. He dislocated it approx 3 weeks ago and had it reduced in the ED at that time. He had been drinking this evening , approx a 6-pack. He takes daily aspirin, and is no longer on Eliquis. PMHx: borderline-DM, HTN, COPD. Smoker. Patient is afebrile in ED. - History of Current Complaint Chief Complaint: EDHipPelvisInjury Stated Complaint: HIP PAIN PER PT Time Seen by Provider: 03/16/19 23:36 Hx Obtained From: Patient Onset of Pain: Immediate, Prior to Arrival Onset/Duration: Hours Severity Initially: Moderate Severity Currently: Moderate Pain Intensity: 6 Pain Scale Used: 0-10 Numeric Timing: Constant Location: Is Discrete @ - L hip Character Of Pain: Aching, Throbbing Aggravating Factor(s): Movement Alleviating Factor(s): Nothing Able to Bear Weight: No - Allergies/Home Medications Allergies/Adverse Reactions: Allergies Allergy/AdvReac Type Severity Reaction Status Date / Time morphine Allergy Rash And Verified 01/29/19 08:17 Itching Penicillins Allergy Difficulty Verified 01/29/19 08:17 Breathing PMH/Surg Hx/FS Hx/Imm Hx Previously Healthy: No Endocrine/Hematology History: Denies: Hx Diabetes, Hx Thyroid Disease Cardiovascular History: Reports: Hx Hypertension Denies: Hx Pacemaker/ICD, Hx Peripheral Vascular Disease Respiratory History: Reports: Hx Chronic Obstructive Pulmonary Disease (COPD) Denies: Hx Asthma - Hx OF USES INHALER DAILY Musculoskeletal History: Reports: Hx Arthritis Denies: Hx Osteoporosis Sensory History: Denies: Hx Cataracts, Hx Contacts or Glasses, Hx Glaucoma, Hx Hearing Aid Opthamlomology History: Denies: Hx Cataracts, Hx Contacts or Glasses, Hx Glaucoma Neurological History: Reports: Hx Seizures Denies: Hx Headaches, Hx Transient Ischemic Attacks (TIA) Comment Only: Other Neuro Impairments/Disorders - FOLLOWED BY ERIC LIEBERMAN Psychiatric History: Denies: Hx Anxiety, Hx Depression, Hx Panic Disorder Infectious Disease History: No Infectious Disease History: Denies: Traveled Outside the [place] in Last 30 Days - Family History Known Family History: Positive: None Family History: neg: anaesthesia reaction - Social History Occupation: Disabled Lives: With Family Alcohol Use: <6 beers/daily Alcohol Amount: 6 cans of beer Hx Substance Use: No Substance Use Type: Reports: None Hx Tobacco Use: Yes Smoking Status (MU): Heavy Every Day Tobacco Smoker Type: Cigarettes Amount Used/How Often: 1 - 1 1/2 PPD Length of Time of Smoking/Using Tobacco: Since Age 16 Have You Smoked in the Last Year: No Review of Systems Negative: Fever Musculoskeletal: Other - pos: L hip pain All Other Systems Reviewed And Are Negative: Yes Physical Exam - Summary Physical Exam Summary: Appearance: well appearing, no pain distress, flushed face, smells of ETOH Skin: warm, dry, reflects adequate perfusion Head/face: normal Eyes: EOMI, MICKEY ENT: mucous membranes moist Neck: supple, non-tender Respiratory: CTA, breath sounds present Cardiovascular: RRR, pulses symmetrical Abdomen: non-tender, soft Bowel Sounds: present Musculoskeletal: foreshortened LLE with deformity felt in posterior hip, good pulses and sensation in LLE. Neuro: normal, sensory motor intact, A&Ox3 Triage Information Reviewed: Yes Vital Signs On Initial Exam: Initial Vitals Temp Pulse Resp BP Pulse Ox 99.3 F 81 18 154/74 93 03/16/19 23:33 03/16/19 23:33 03/16/19 23:33 03/16/19 23:33 03/16/19 23:33 Vital Signs Reviewed: Yes Procedures - Procedure Summary Procedure Summary: Procedural sedation for hip reduction: The patient was formally consented, paperwork signed and a timeout was performed. The patient was placed on full cardiopulmonary monitoring including end-tidal CO2. He is placed on oxygen. The patient was first administered 1 mg /kg of IV propofol with resulting light sedation. He was then administered 50 mg aliquots until there was some muscle relaxation allowing for the hip reduction to be performed. Total administration of propofol was 250 mg area this is given over 10 minutes time. Total sedation time is 11 minutes. Patient recovered uneventfully. Close reduction of left prosthetic hip dislocation: Under propofol sedation the patient had closed reduction of hip dislocation. This was performed by downward pressure on the pelvis and flexion/distraction of the hip. The patient reduced after about 5 minutes of manipulation. The extremity is neurovascularly intact. The patient's pain was resolved and he was placed in a knee immobilizer as per the orthopedic surgeon request. He tolerated this well without complication. The postop x-ray indicated adequate reduction. Diagnostics - Vital Signs Vital Signs Temp Pulse Resp BP Pulse Ox 03/16/19 23:33 99.3 F 81 18 154/74 93 - Laboratory Lab Statement: Any lab studies that have been ordered have been reviewed, and results considered in the medical decision making process. - Radiology PRE-RED HIP/PELVIS Radiology Interpretation Completed By: ED Physician Summary of Radiographic Findings: Prosthetic hip dislocated on posterior L side POST RED - HIP/PEL Radiology Interpretation Completed By: ED Physician Summary of Radiographic Findings: Successful reduction. PRE-RED PELVIS Radiology Interpretation Completed By: ED Physician Summary of Radiographic Findings: Prosthetic hip dislocated on posterior L side Lower Extremity Course/Dx - Course Course Of Treatment: Nurses' notes reviewed. Patient had been drinking and positioned himself such that his prosthetic hip dislocated. He was relocated here under propofol procedural sedation. Post procedure x-ray shows adequate reduction and his post procedure exam is neurovascularly intact. He will follow -up closely with Dr. Almazan for reevaluation of the prosthetic joint. - Diagnoses Provider Diagnoses: Dislocation of hip prosthesis - Physician Notifications Discussed Care Of Patient With: Kulwant Mendoza - ortho Time Discussed With Above Provider: 00:14 Instructed by Provider To: Other - Recommends trying to reduce hip; if successful, safe to discharge patient. Discharge - Sign-Out/Discharge Documenting (check all that apply): Patient Departure - D/C Patient Received Moderate/Deep Sedation with Procedure: Yes - Discharge Plan Condition: Improved Disposition: HOME Patient Education Materials: Moderate Sedation (ED), Hip Dislocation (ED) Referrals: Earlene Almazan MD [Medical Doctor] - Additional Instructions: Call Dr. Almazan first thing in the morning to schedule prompt follow-up. Walk with your walker. Wear the knee immobilizer until told to discontinue by the orthopedist. - Billing Disposition and Condition Condition: IMPROVED Disposition: Home - Attestation Statements Document Initiated by Scribe: Yes Documenting Scribe: SooYjamisong Estella Provider For Whom Scribe is Documenting (Include Credential): Dr. Pardeep Lam MD Scribe Attestation: I, Toi Soria, scribed for Dr. Pardeep Lam MD on 03/17/19 at 0614. Scribe Documentation Reviewed: Yes Provider Attestation: The documentation as recorded by the Toi atkinson accurately reflects the service I personally performed and the decisions made by me, Dr. Pardeep Lam MD Status of Scribe Document: Viewed Procedure Note: Sedation - Sedation/Analgesia Procedure: At 00:35 on 03/17/2019. L hip Informed Consent Obtained: Yes Plan for Sedation: Moderate Sedation Previous Problem with Sedation: No
[2019-03-17] MEDS ORDERED: fentaNYL* 50 MCG/ML 2 ML VIAL (100 MCG VIAL) IV SLOW PU ONE (00:19)
[2019-03-17] MEDS ORDERED: Propofol* 10 MG/ML 20 ML BTL IV PUSH ONE (00:19)
[2019-03-17] MEDS ORDERED: Propofol* 500 MG/50 ML BTL ONE (00:20)
[2019-03-17 01:51] VITALS: BP 142/80
== END 2019-03-17 01:49 | disposition home or self-care (01) ==
LOC: ED 23:30
DX: T84.021A Dislocation of internal left hip prosthesis, initial encounter (principal); Y83.1 Surgical operation with implant of artificial internal device as the cause of abnormal reaction of the patient, or of later complication, without mention of misadventure at the time of the procedure; Y92.9 Unspecified place or not applicable; I10 Essential (primary) hypertension; Z86.73 Personal history of transient ischemic attack (TIA), and cerebral infarction without residual deficits; J44.9 Chronic obstructive pulmonary disease, unspecified; Z88.0 Allergy status to penicillin; F17.210 Nicotine dependence, cigarettes, uncomplicated
CPT/HCPCS: 27265; 72170; 99284; J2704

== ENCOUNTER 2021-04-03 23:59 | Observation (INO) ==
[2021-04-04 00:32] LABS: ABS Basophils 0.1 10^3/ul (0-0.2); ABS Eosinophils 0.3 10^3/ul (0-0.6); ABS Monocytes 0.6 10^3/ul (0-0.8); ABS Neutrophils 4.1 10^3/ul (1.5-7.7); Eosinophil % 3.4 %; Hematocrit 39 % (42-52); Hemoglobin 13.5 g/dL (14.0-18.0); Lymphocyte % 36.7 %; Mean Corpuscular HGB Conc 34 g/dL (31-36); Mean Corpuscular Hemoglobin 31 pg (27-31); Mean Corpuscular Volume 91 fL (80-94); Mean Platelet Volume 9.2 fL (7.4-10.4); Nucleated Red Blood Cells % 0.1; Platelet Count 186 10^3/uL (150-450); Red Blood Count 4.33 10^6 /uL (4.18-5.48); Red Cell Distribution Width 13 % (10-15); White Blood Count 8.1 10^3/uL (3.5-10.8)
[2021-04-04 00:46] LABS: INR 1.14 (0.82-1.09)
[2021-04-04 00:47] LABS: Albumin 4.1 g/dL (3.2-5.2); Albumin/Globulin Ratio 1.4 (1-3); Calcium 8.9 mg/dL (8.6-10.3); EGFR African American 105.1 (>60); EGFR Non-African American 86.9 (>60); Globulin 2.9 g/dL (2-4); Potassium 3.9 mmol/L (3.5-5.0); Total Bilirubin 0.4 mg/dL (0.2-1.0)
[2021-04-04 00:49] LABS: Troponin I 0.01 ng/mL (<0.03)
[2021-04-04] MEDS ORDERED: Lactated Ringers 1000 ml BAG 1,000 ML IV ONE (01:06)
[2021-04-04] MEDS ORDERED: Magnesium Sulfate 2 gm BAG 2 GM/50 ML BAG IVPB ONE (01:10)
[2021-04-04] MEDS ORDERED: Enoxaparin 40 MG/0.4 ML SYR SUBCUT SCH (02:00)
[2021-04-04] MEDS ORDERED: Nicotine GUM 4MG FRUIT FLAVOR PO PRN (02:22)
[2021-04-04] MEDS ORDERED: Nitro 2% OINT (Nitroglycerin) 1 INCH/PAK TOPICAL ONE (02:23)
[2021-04-04] MEDS ORDERED: Dextrose 50% Syringe 50 ml 25 GM/50 ML SYRINGE IV PUSH PRN (02:26)
[2021-04-04] MEDS ORDERED: NS 0.9% 1000 ml BAG 1,000 ML IV SCH (02:30)
[2021-04-04] MEDS ORDERED: Albuterol HFA INHALER 8 gm MDI INH PRN (03:07)
[2021-04-04 03:55] LABS: Calcium 8.6 mg/dL (8.6-10.3); EGFR African American 110.9 (>60); EGFR Non-African American 91.6 (>60); Potassium 4.2 mmol/L (3.5-5.0)
[2021-04-04 03:58] LABS: Troponin I 0.01 ng/mL (<0.03)
[2021-04-04 05:55] LABS: Troponin I 0.01 ng/mL (<0.03)
[2021-04-04] MEDS ORDERED: Nicotine PATCH 21 MG/24 HR PATCH TRANSDERM SCH (08:00)
[2021-04-04] MEDS ORDERED: Aspirin EC 81 mg TAB.EC (enteric coated) PO SCH (09:00)
[2021-04-04] MEDS ORDERED: Mometasone/Formoter 200/5 MDI INH SCH (09:00)
[2021-04-04] MEDS ORDERED: Regadenoson 0.4 MG/5 ML SYRINGE ONE (09:25)
[2021-04-04] MEDS ORDERED: Perflutren Lipid Microsphere 3 ML VIAL ONE (10:42)
[2021-04-04] MEDS ORDERED: Albuterol/Ipratropium NEB.SOL (2.5/0.5 MG) 3 ML NEB.SOLN INH PRN (11:32)
[2021-04-04 15:21] VITALS: BP 144/71
== END 2021-04-04 15:30 | disposition home or self-care (01) ==
LOC: ED 23:59 → MEDTELE 23:59
PROVIDERS: ADMIT Internal Medicine; ATTEND Hospitalist

== ENCOUNTER 2022-06-12 17:03 | Observation (INO) ==
[2022-06-12 17:29] LABS: ABS Basophils 0.1 10^3/ul (0-0.2); ABS Eosinophils 0.1 10^3/ul (0-0.6); ABS Lymphocytes 2.1 10^3/ul (1.0-4.8); ABS Monocytes 0.9 10^3/ul (0-0.8); ABS Neutrophils 5.7 10^3/ul (1.5-7.7); Eosinophil % 1.6 %; Hematocrit 45 % (42-52); Hemoglobin 15.1 g/dL (14.0-18.0); Lymphocyte % 23.8 %; Mean Corpuscular HGB Conc 33 g/dL (31-36); Mean Corpuscular Hemoglobin 29 pg (27-31); Mean Corpuscular Volume 86 fL (80-94); Mean Platelet Volume 9.7 fL (7.4-10.4); Nucleated Red Blood Cells % 0.1; Platelet Count 221 10^3/uL (150-450); Red Cell Distribution Width 13 % (10-15); White Blood Count 8.9 10^3/uL (3.5-10.8)
[2022-06-12 17:37] LABS: INR 1.08 (0.89-1.11)
[2022-06-12] MEDS ORDERED: Lactated Ringers 1000 ml BAG 1,000 ML IV ONE (17:54)
[2022-06-12 18:12] LABS: Albumin 4.7 g/dL (3.2-5.2); Albumin/Globulin Ratio 1.9 (1-3); Calcium 9.4 mg/dL (8.6-10.3); Globulin 2.5 g/dL (2-4); Potassium 4.1 mmol/L (3.5-5.0); Total Bilirubin 0.5 mg/dL (0.2-1.0); Total Protein 7.2 g/dL (6.4-8.9); eGFR CKD-EPI 98.6 (>60)
[2022-06-12] MEDS ORDERED: Iodixanol (CONTRAST) 320 MG/ML 100 ML SDV IV ONE (18:36)
[2022-06-12 19:17] LABS: High Sensitivity Troponin 1 Hr 9 pg/mL (<20)
[2022-06-12] MEDS ORDERED: Dextrose 50% Syringe 50 ml 25 GM/50 ML SYRINGE IV PUSH PRN (21:58)
[2022-06-12] MEDS ORDERED: Nicotine GUM 4MG FRUIT FLAVOR PO PRN (21:59)
[2022-06-12] MEDS ORDERED: Enoxaparin 40 MG/0.4 ML SYR SUBCUT SCH (22:00)
[2022-06-12] MEDS ORDERED: Albuterol HFA INHALER 8 gm MDI INH PRN (22:00)
[2022-06-12 23:28] LABS: HDL Cholesterol 38.1 mg/dL
[2022-06-13 00:09] LABS: ABS Basophils 0.1 10^3/ul (0-0.2); ABS Eosinophils 0.3 10^3/ul (0-0.6); ABS Lymphocytes 2.5 10^3/ul (1.0-4.8); ABS Monocytes 0.8 10^3/ul (0-0.8); ABS Neutrophils 4.1 10^3/ul (1.5-7.7); Eosinophil % 3.2 %; Hematocrit 45 % (42-52); Lymphocyte % 32.4 %; Mean Corpuscular HGB Conc 34 g/dL (31-36); Mean Corpuscular Hemoglobin 29 pg (27-31); Mean Corpuscular Volume 86 fL (80-94); Mean Platelet Volume 9.6 fL (7.4-10.4); Nucleated Red Blood Cells % 0.1; Platelet Count 205 10^3/uL (150-450); Red Cell Distribution Width 14 % (10-15); White Blood Count 7.8 10^3/uL (3.5-10.8)
[2022-06-13 00:29] LABS: Activated Partial Thrombo Time 35.1 seconds (26.0-38.0); INR 1.08 (0.89-1.11)
[2022-06-13 00:40] LABS: eGFR CKD-EPI 97.6 (>60)
[2022-06-13] MEDS: Heparin 5000 UNITS/ML 1 mL VIAL SUBCUT SCH ×4 (01:10→20:07)
[2022-06-13 06:12] LABS: Hematocrit 44 % (42-52); Hemoglobin 14.8 g/dL (14.0-18.0); Mean Corpuscular HGB Conc 33 g/dL (31-36); Mean Corpuscular Hemoglobin 29 pg (27-31); Mean Corpuscular Volume 86 fL (80-94); Mean Platelet Volume 9.2 fL (7.4-10.4); Platelet Count 183 10^3/uL (150-450); Red Blood Count 5.16 10^6 /uL (4.18-5.48); Red Cell Distribution Width 14 % (10-15); White Blood Count 6.9 10^3/uL (3.5-10.8)
[2022-06-13 06:51] LABS: Calcium 9.1 mg/dL (8.6-10.3); Magnesium 2.1 mg/dL (1.9-2.7); Potassium 4.2 mmol/L (3.5-5.0); eGFR CKD-EPI 98.2 (>60)
[2022-06-13 07:21] LABS: ABS Basophils 0.1 10^3/ul (0-0.2); ABS Eosinophils 0.2 10^3/ul (0-0.6); ABS Lymphocytes 1.8 10^3/ul (1.0-4.8); ABS Monocytes 0.6 10^3/ul (0-0.8); ABS Neutrophils 4.2 10^3/ul (1.5-7.7); Eosinophil % 3.4 %; Large Platelets Present; Lymphocyte % 25.8 %; Nucleated Red Blood Cells % 0.1
[2022-06-13] MEDS: Aspirin EC 81 mg TAB.EC (enteric coated) PO SCH (13:52)
[2022-06-13] MEDS: Mometasone/Formoter 200/5 MDI INH SCH ×2 (17:48→20:18)
[2022-06-14] MEDS: Heparin 5000 UNITS/ML 1 mL VIAL SUBCUT SCH (05:29)
[2022-06-14 05:56] LABS: ABS Basophils 0.1 10^3/ul (0-0.2); ABS Eosinophils 0.2 10^3/ul (0-0.6); ABS Lymphocytes 1.8 10^3/ul (1.0-4.8); ABS Monocytes 0.6 10^3/ul (0-0.8); ABS Neutrophils 3.9 10^3/ul (1.5-7.7); Hematocrit 46 % (42-52); Hemoglobin 15.1 g/dL (14.0-18.0); Lymphocyte % 27.6 %; Mean Corpuscular HGB Conc 33 g/dL (31-36); Mean Corpuscular Hemoglobin 29 pg (27-31); Mean Corpuscular Volume 86 fL (80-94); Mean Platelet Volume 9.4 fL (7.4-10.4); Nucleated Red Blood Cells % 0.1; Platelet Count 194 10^3/uL (150-450); Red Cell Distribution Width 14 % (10-15); White Blood Count 6.5 10^3/uL (3.5-10.8)
[2022-06-14 06:14] LABS: Calcium 9.4 mg/dL (8.6-10.3); Phosphorus 3.8 mg/dL (2.5-5.0); Potassium 4.4 mmol/L (3.5-5.0); eGFR CKD-EPI 100.1 (>60)
[2022-06-14] MEDS: Mometasone/Formoter 200/5 MDI INH SCH (07:07)
[2022-06-14] MEDS ORDERED: Regadenoson 0.4 MG/5 ML SYRINGE ONE (07:26)
[2022-06-14] MEDS ORDERED: Aminophylline 25 MG/ML VIAL ONE (07:26)
[2022-06-14] MEDS: Aspirin EC 81 mg TAB.EC (enteric coated) PO SCH (11:36)
[2022-06-14 13:17] VITALS: BP 140/85
== END 2022-06-14 12:35 | disposition home or self-care (01) ==
LOC: ED 17:03 → EDHOLD 17:03 → SUATTDRO 21:51 → EDHOLD 06-13 10:46 → MEDTELE 06-13 11:00
PROVIDERS: ADMIT Internal Medicine; ATTEND Internal Medicine